=== PATIENT | male | born 1965 | race Two or more races ===

== ENCOUNTER 2024-05-28 09:38 | Emergency (ER) | payer OTHER, SELFPAY ==
[2024-05-28] VITALS (7 sets, daily range): BP systolic 113–138; BP diastolic 68–87; PULSE 64–81; RESP 16–18; TEMP 36.1–36.8; O2SAT 93–95; BMI 33.1
--- NOTE | 2024-05-28 10:46 | ECG_ITS ---
Test Reason : dizziness Blood Pressure : / mmHG Vent. Rate : 069 BPM Atrial Rate : 069 BPM P-R Int : 134 ms QRS Dur : 106 ms QT Int : 416 ms P-R-T Axes : 047 022 052 degrees QTc Int : 445 ms Normal sinus rhythm Nonspecific T wave abnormality Abnormal ECG No previous ECGs available Referred By: Generic ED Physician Electronically Signed By:Esvin Morales
[2024-05-28 11:11] LABS: Hematocrit 47.2 % (42.0-52.0); Hemoglobin 15.8 g/dl (14.0-18.0); Mean Corpuscular HGB Conc 33.5 g/dl (31.0-36.0); Mean Corpuscular Hemoglobin 29.3 pg (27.0-33.0); Mean Corpuscular Volume 87.6 fL (80.0-98.0); Platelet Count 211 X10*3/uL (160-400); Red Blood Count 5.39 X10*6/uL (4.60-5.80); Red Cell Distribution Width 13.1 % (11.0-16.0)
[2024-05-28 11:12] LABS: WBC ABN SCTR FOR CBC 1
[2024-05-28 11:24] LABS: Anion Gap 14 (12-20); Blood Urea Nitrogen 10 mg/dL (9-16); Calcium 9.3 mg/dL (8.4-10.2); Carbon Dioxide 24 mmol/L (22-29); Chloride 109 mmol/L (96-108); Creatinine Clr Calc Pharmacy 104.2; Estimated Glomerular Filt Rate > 60; Glucose Random 125 mg/dL (60-115); Potassium 4.2 mmol/L (3.3-5.1); Sodium 143 mmol/L (135-145)
[2024-05-28 11:59] LABS: Basophils Percent Manual 1 % (0-2); Lymphocytes Percent Manual 27 % (20-40); Monocytes Percent Manual 2 % (2-11); Neutrophils Percent Manual 70 % (45-73)
[2024-05-28 12:00] LABS: Platelet Estimate NORMAL (NORMAL); Platelet Morphology Comment NORMAL; RBC Morphology NORMAL
[2024-05-28 12:17] LABS: Basophils Abs Manual 0.1 X10*3/uL (0.0-0.2); Lymphocytes Absolute Manual 1.7 X10*3/uL (1.2-4.9); Monocytes Absolute Manual 0.1 X10*3/uL (0.1-1.2); White Blood Count 6.4 X10*3/uL (4.8-10.8)
[2024-05-28 12:19] LABS: Band Neutrophils Percent 0 % (3-5); Neutrophils Absolute Manual 4.5 X10*3/uL (2.0-8.3)
--- NOTE | 2024-05-28 12:33 | ED_ITS ---
HPI - Dizziness General Chief Complaint: Dizziness Stated Complaint: Dizzy Can't Hear out of R Ear Time Seen by Provider: 05/28/24 13:19 Source: patient, RN notes reviewed and old records reviewed Mode of arrival: ambulatory Limitations: no limitations History of Present Illness ED Provider: TREESA FELIZ PA-C HPI Narrative: 59-year-old male with no significant past medical history presents to the ED today for evaluation of dizziness x2 days. Reports dizziness is exacerbated with positional changes. Admits symptoms began after drinking multiple coronas on Tuesday and initially thought this was just a hangover. Denies head injury or trauma. Additionally he endorses decreased hearing out of his right ear with associated buzzing sound. Admits to associated nausea without vomiting. Denies history of similar. Denies fever, chills, sore throat, headache, vision changes, discharge from the ear, chest pain, palpitations, shortness of breath, lower extremity pain/swelling. Denies recent swimming. Denies recent travel or long car rides. Related Data Previous Rx's ?Medication ?Instructions ?Recorded meclizine 25 mg tablet 25 mg PO DAILY PRN dizziness #20 05/28/24 tabs Allergies Allergy/AdvReac Type Severity Reaction Status Date / Time No Known Allergies Allergy Verified 05/28/24 10:38 Review of Systems 2 Review of Systems: Constitutional: No fever, chills, fatigue, night sweats, weight changes ENT/Mouth: No ear pain, hearing loss, nasal congestion, sinus pain, rhinorrhea, sore throat Eyes: No eye pain, swelling, redness, vision changes, discharge Cardio: No chest pain, palpitations, LARSON, orthopnea, peripheral edema Pulm: No SOB, cough, sputum, wheezing, dyspnea, hemoptysis GI: No nausea, vomiting, hematemesis, abdominal pain, diarrhea, constipation, hematochezia, melena : No irregular bleeding, dysuria, frequency, urgency, hesitancy, hematuria, flank pain, urinary flow changes, urinary incontinence or retention MSK: No back pain, neck pain, joint pain, myalgias Skin: No lesions, rashes Neuro: No weakness, numbness, paresthesias, LOC, headache, +dizziness Psych: No anxiety/panic, depression, SI/HI, AH/VH All other systems reviewed and are negative. PMFSH Past Medical History Attestation statement: The following information was validated with the patient. Source: old records reviewed and nursing notes reviewed Social History Social History Smoked in Last 30 Days: No Use of substances other than those prescribed or required for medical reasons: No Advance Directives: No Advance Directives Information Provided: Yes Physical Exam 2 Vital Signs: Vital Signs: Last Vital Signs Temp 97 F 05/28/24 12:34 Pulse 81 05/28/24 14:07 Resp 16 05/28/24 14:02 BP 126/83 05/28/24 14:07 Pulse Ox 94 05/28/24 14:02 O2 Del Method Room Air 05/28/24 14:02 BMI result Body Mass Index 33.1 Vital signs stable Const: General: cooperative, healthy appearing, comfortable and no acute distress Orientation/consciousness: patient oriented x3 Limitations: no limitations HEENT: Other: + No pain on manipulation of left pinna or tragus. No mastoid tenderness. Left EAC without erythema, edema or discharge. TM intact without erythema, effusion, or bulging. + No pain on manipulation of right pinna or tragus. No mastoid tenderness. Right EAC without erythema, edema or discharge. TM intact without erythema, effusion, or bulging. Head: Yes normal to inspection, Yes No palpable skull fracture present, Yes normocephalic and Yes atraumatic Ears: hearing grossly normal bilaterally General nose exam: Normal external nose present Face and sinus: Yes normal facial exam Eyes: General: appearance normal, both eyes and all related structures P upils: Equal, round and reactive pupils present Neck: Neck: Yes normal visual inspection, Yes full ROM, Yes no lymphadenopathy and Yes no JVD Resp: Effort & Inspection: normal respiratory effort and able to speak in complete sentences Auscultation: clear to auscultation bilaterally Cardio: Jugular venous distension: no JVD Rate: regular rate Rhythm: r egular rhythm Skin: General skin exam: no rashes or lesions noted Neuro: General: patient oriented x3 and gait normal Cranial nerves: Yes Equal, round and reactive pupils present Gait exam (Neuro): Normal gait present Motor exam (neuro): 5/5 motor strength present throughout and Pronator motor function not present Coordination: [id number]-[id number] test normal, mmmj-hy-wose test normal and Normal rapid alternating movements of the distal upper extremity present (Neuro) Pupils: Normal pupillary reactivity/response: bilateral Course Course Course Narrative: This is an RME: Additional HPI, ROS, PE not included below will be deferred to primary provider. RME assessment and note performed by: Tiana Gallardo PA-C This is a [id number]-male who presents to the ER with complaints of dizziness x 2 days. Reports dizziness occurs with positional changes. Reports that he has been unable to hear out of his right ear. R ear unremarkable. Reporting some high pitched buzzing in his right ear as well. Endorsing nausea as well. Plan: labs, ekg, further ER evaluation needed Reevaluation(s) Reevaluation #1: 1400-- CBC without leukocytosis or left shift. No anemia. H&H stable. Chemistry without acute electrolyte abnormality requiring intervention. Troponin undetectable. EKG showing normal sinus rhythm with a rate of 69 beats per minute, QT 416, QTC 445, no acute ischemic changes or ST elevations. ACS unlikely. Urine negative for infection. > orthostatic vital signs negative. > patient receiving IV fluids and meclizine. Plan to re-evaluate. 1510-- On re-evaluation, patient reports improvement in symptoms following with fluid resuscitation and meclizine. Given unremarkable workup, patient likely has vertigo. I do not feel as though imaging of head/brain is warranted at this time as patient's symptoms have improved and his exam is nonfocal. Will send him home with a prescription for meclizine. Advised to follow up with primary care provider. he is ambulating with steady gait. Patient has remained stable throughout ED visit today. Discussed worrisome signs and symptoms and when to return to the ED. All questions answered at this time. Patient is agreeable with disposition and stable for discharge. Medications Administered Discontinued Medications Generic Name Dose Route Start Last Admin Trade Name Freq PRN Reason Stop Dose Admin Sodium Chloride 1,000 mls @ 999 mls/hr 05/28/24 14:00 05/28/24 14:16 Ns IV 05/28/24 15:00 999 mls/hr .Q1H1M ROSE Administration Meclizine HCl 25 mg 05/28/24 13:55 05/28/24 14:16 Meclizine Hcl 25 Mg Tablet PO 05/28/24 13:56 25 mg ONCE ONE Administration Ondansetron HCl 4 mg 05/28/24 13:56 05/28/24 14:16 Ondansetron Hcl 4 Mg/2 Ml Vial IVPUSH 05/28/24 13:57 4 mg ONCE ONE Administration Medical Decision Making Medical Decision Making [facility] Narrative: 59-year-old male with no significant past medical history presents to the ED today for evaluation of dizziness x2 days. Vital signs stable. Afebrile. He is nontoxic-appearing and in no distress. He is lying comfortably on the exam bed. PERRLA. bilateral EACs and TMs wnl. exam nonfocal. cerebellum intact. ambulating with steady gait. Differential diagnosis include anemia, dehydration, electrolyte abnormality, orthostatic hypotension, vertigo. Unlikely ACS, arrhythmia, ICH, CVA/TIA, cerebellar stroke, PE. Unlikely otitis media/ externa, mastoiditis, malignant otitis externa. Plan for labs, ekg, UA, orthostatic vital signs, IVF, meclizine, and re- evaluation. Differential Diagnosis Differential Diagnoses: The differential diagnosis associated with the presentation includes As above Admission/Observation Not indicated Lab Data [facility] Lab Attestation statement: I reviewed the patient's lab results. As above 05/28/24 11:02 05/28/24 11:02 Labs: Lab Results 05/28/24 05/28/24 Range/Units 11:02 12:43 WBC 6.4 (4.8-10.8) X10*3/uL RBC 5.39 (4.60-5.80) X10*6/uL Hgb 15.8 (14.0-18.0) g/dl Hct 47.2 (42.0-52.0) % MCV 87.6 (80.0-98.0) fL MCH 29.3 (27.0-33.0) pg MCHC 33.5 (31.0-36.0) g/dl RDW 13.1 (11.0-16.0) % Plt Count 211 (160-400) X10*3/uL MPV 11.0 (9.4-12.4) fL Immature Gran % (Auto) Cancelled Neut % (Auto) Cancelled Lymph % (Auto) Cancelled [place] % (Auto) Cancelled Eos % (Auto) Cancelled Baso % (Auto) Cancelled Lymph # (Auto) Cancelled [place] # (Auto) Cancelled Eos # (Auto) Cancelled Baso # (Auto) Cancelled Abs Immat Gran (auto) Cancelled Absolute Neuts (auto) Cancelled Absolute Nucleated RBC 0.000 (0.0-0.012) X10*3/uL Nucleated RBC % (auto) 0.0 (0.0-0.2) /100WBC Neutrophils % (Manual) 70 (45-73) % Band Neutrophils % 0 L (3-5) % Lymphocytes % (Manual) 27 (20-40) % Monocytes % (Manual) 2 (2-11) % Basophils % (Manual) 1 (0-2) % Abs Neuts (Manual) 4.5 (2.0-8.3) X10*3/uL Lymphocytes # (Manual) 1.7 (1.2-4.9) X10*3/uL Monocytes # (Manual) 0.1 (0.1-1.2) X10*3/uL Basophils # (Manual) 0.1 (0.0-0.2) X10*3/uL Platelet Estimate NORMAL (NORMAL) Plt Morphology Comment NORMAL RBC Morphology NORMAL Sodium 143 (135-145) mmol/L Potassium 4.2 (3.3-5.1) mmol/L Chloride 109 H (96-108) mmol/L Carbon Dioxide 24 (22-29) mmol/L Anion Gap 14 (12-20) BUN 10 (9-16) mg/dL Creatinine 0.87 (0.5-1.4) mg/dL Estim Creat Clear Calc 104.2 Estimated GFR > 60 Random Glucose 125 H (60-115) mg/dL Calcium 9.3 (8.4-10.2) mg/dL Troponin I High Sens < 2.7 (<3.5-35.0) ng/L Urine Color Yellow Urine Appearance Clear Urine pH 6.5 (5.0-9.0) Ur Specific [place] 1.020 (1.005-1.025) Urine Protein Negative (Neg-Trace) mg/dL Urine Glucose (UA) Negative (Negative) mg/dL Urine Ketones Negative (Negative) mg/dL Urine Blood Negative (Negative) Urine Nitrite Negative (Negative) Ur Leukocyte Esterase Trace H (Negative) Urine RBC 0-2 (0-2) /HPF Urine WBC 0-5 (0-5) /HPF Ur Squamous Epith Cells 0-2 (0-2) /HPF Urine Bacteria None Seen (None Seen) Hyaline Casts 0-2 (0-2) /LPF Independent Interpretation I performed an independent interpretation of an: EKG Interpretation: EKG showing normal sinus rhythm with a rate of 69 beats per minute, QT 416, QTC 445, no acute ischemic changes or ST elevations. Prescription Management I considered prescription management with: Other (Meclizine) Social Determinants Patient?s care significantly limited by Social Determinants of Health including: Other Social Determinant of Health Critical Care Time Critical Care Time Critical Care Time: No Discharge Plan Discharge Clinical Impression: Dizziness Patient Disposition: Home, Self-Care Instructions: Vertigo (ED), Dizziness (ED) Additional Instructions: Your blood work today is reassuring. Your blood pressure is normal. Your EKG is normal. Your urine is negative for infection. You were treated with IV fluids and a dose of meclizine today. Meclizine is a medication that has been sent to your pharmacy for you to take as needed for dizziness. Make sure you are staying hydrated throughout the day. Please follow up with your primary care provider. Return with new or worsening symptoms. In the case of an emergency call 911. Prescriptions: New meclizine 25 mg tablet 25 mg PO DAILY PRN (Reason: dizziness) Qty: 20 0RF Referrals: [facility] [place] Primary CareSudarshan [Provider Group] [facility] [place] Primary CareMagda [Provider Group] Stand Alone Forms: Work/School Release Print Language: Guyanese
[2024-05-28 12:57] LABS: Appearance Urine Clear; Color Urine Yellow; Glucose Urine UA Negative (Negative); Leukocyte Esterase Urine Trace (Negative); Nitrite Urine Negative (Negative); PH 6.5 (5.0-9.0); UMIC TRIGGER UACC YES; Urine Blood Negative (Negative); Urine Ketones Negative (Negative); Urine Protein Negative (Neg-Trace)
[2024-05-28 13:00] LABS: Bacteria Urine None Seen (None Seen); Hyaline Casts Urine 0-2 /LPF (0-2); RBC Urine 0-2 /HPF (0-2); Squamous Epithelial Cell Urine 0-2 /HPF (0-2); WBC Urine 0-5 /HPF (0-5)
--- NOTE | 2024-05-28 13:27 | PC.NURSE ---
Called lab, spoke to Jacquelyn to confirm if troponin lab test can be added on. Jacquelyn confirmed they have enough sample to run test.
[2024-05-28 13:53] LABS: Troponin-I High Sensitivity < 2.7 ng/L (<3.5-35.0)
[2024-05-28] MEDS: Meclizine HCl 25 MG TABLET PO (14:16)
[2024-05-28] MEDS: ondansetron HCL 4 MG/2 ML VIAL IVPUSH (14:16)
[2024-05-28] MEDS: 0.9 % Sodium Chloride 1,000 ML 999 ML IV (14:16)
== END 2024-05-28 15:57 | disposition home or self-care (01) ==
PROVIDERS: Physician Assistant Medical; Emergency Provider Emergency Medicine
DX: R42 Dizziness and giddiness (principal); R94.31 Abnormal electrocardiogram [ECG] [EKG]; H91.91 Unspecified hearing loss, right ear; R11.2 Nausea with vomiting, unspecified; Z79.899 Other long term (current) drug therapy
CPT/HCPCS: 36415; 80048; 81001; 84484; 85007; 85027; 93005; 96361; 96374; 99284; 99285; J2405

== ENCOUNTER → 2024-05-28 10:46 | Outpatient (BNV) | payer OTHER, SELFPAY | PROVIDERS: Emergency Provider Emergency Medicine; Visit Provider Internal Medicine Cardiovascular Disease | DX: R42 Dizziness and giddiness (principal); R94.31 Abnormal electrocardiogram [ECG] [EKG] | CPT/HCPCS: 93010 ==

== ENCOUNTER 2024-05-31 07:43 | Inpatient (IN) | payer OTHER, SELFPAY ==
--- NOTE | ~2024-05-31 | XR_ITS ---
EXAMINATION: XR CHEST CLINICAL INFORMATION: Dizziness. COMPARISON: None available. TECHNIQUE: Frontal view of the chest was obtained. FINDINGS: The lungs are well expanded. No focal consolidation. Trace left pleural effusion. Cardiac silhouette is within normal limits. XR/XR chest 1V IMPRESSION: Trace left pleural effusion.
--- NOTE | ~2024-05-31 | US_ITS ---
EXAMINATION: US EXTRACRANIAL CAROTID DUPLEX, BILATERAL CLINICAL INFORMATION: Acute stroke COMPARISON: None available. TECHNIQUE: Real-time ultrasound and Doppler techniques (integrating B-mode 2-D vascular images, Doppler spectral analysis and color-flow Doppler imaging) were utilized to interrogate the extracranial carotid arteries, the vertebral arteries and proximal subclavian arteries bilaterally. The degree of stenosis is determined by criteria similar to NASCET. FINDINGS: Right Side: 1. There is mild atherosclerotic plaque seen in the bifurcation/proximal ICA region. 2. The common carotid artery PSV proximally is 162 cm/s and distally 86 cm/s. 3. The proximal internal carotid artery velocities are 54 cm/s systolic and 21 cm/s diastolic. 4. The proximal external carotid artery PSV is 90 cm/s. 5. The vertebral artery shows antegrade flow. 6. The subclavian artery waveforms are normal. Left Side: 1. There is mild atherosclerotic plaque seen in the bifurcation/proximal ICA region. 2. The common carotid artery PSV proximally is 109 cm/s and distally 109 cm/s. 3. The proximal internal carotid artery velocities are 44 cm/s systolic and 12 cm/s diastolic. 4. The proximal external carotid artery PSV is 96 cm/s. 5. The vertebral artery shows antegrade flow. 6. The subclavian artery waveforms are normal. Incidental note of mild thyromegaly. US/US carotid duplex BI IMPRESSION: 1. RIGHT: Minimal, non-hemodynamically significant stenosis of the proximal right internal carotid artery corresponding to a 0-49% stenosis by velocity criteria. 2. LEFT: Minimal, non-hemodynamically significant stenosis of the proximal left internal carotid artery corresponding to a 0-49% stenosis by velocity criteria. 3. Incidental note of mild thyromegaly. Consider dedicated thyroid ultrasound for further evaluation if warranted.
--- NOTE | ~2024-05-31 | MR_ITS ---
EXAMINATION: MR BRAIN WITHOUT CONTRAST CLINICAL INFORMATION: Severe ataxia. Rule out cerebellar stroke. COMPARISON: Head CT from 05/31/2024. TECHNIQUE: Multiplanar, multisequence imaging of the brain was performed without contrast. Slightly limited study with motion artifacts. FINDINGS: There is an acute infarct in the right ventrolateral aspect of the harjit without associated hemorrhage. The ventricles are normal in size. No mass effect or midline shift is seen. Nonspecific mild scattered white matter signal changes may be due to chronic microangiopathy. No extra-axial fluid collections are seen. The cerebellum is normal. The craniovertebral junction, marrow signal, and midline structures are normal. The major intracranial flow voids at the level of the [place] are preserved. The dural venous sinus flow voids are maintained. The mastoid air cells are well aerated. There are small retention cysts in the left maxillary sinus and mild ethmoid sinus mucosal thickening. MR/MR head/brain wo con IMPRESSION: Acute infarct in the right ventrolateral aspect of the harjit.
--- NOTE | ~2024-05-31 | CT_ITS ---
EXAMINATION: CT HEAD WITHOUT CONTRAST CLINICAL INFORMATION: Dizziness. COMPARISON: None available. TECHNIQUE: Contiguous axial imaging was performed from the skull base to vertex without intravenous administration of contrast. This CT examination was performed using dose optimization techniques as appropriate, variously including the following: *Automated exposure control *Adjustment of mA and/or kV according to patient size (this includes techniques or standardized protocols for targeted exams where dose is matched to indication/reason for exam; i.e. extremities or head) *Use of iterative reconstruction technique DLP: 667 mGy-cm FINDINGS: There is no evidence of acute intracranial hemorrhage or territorial infarction. No mass effect or midline shift is seen. Biggs to white matter differentiation is preserved. No extra-axial fluid collections are identified. No hydrocephalus. The osseous structures and soft tissues are intact. The mastoid air cells and visualized portions of the paranasal sinuses are well aerated. CT/CT head/brain wo IV con IMPRESSION: No acute intracranial abnormality.
[2024-05-31 07:53] VITALS: BP 120/84; PULSE 83; RESP 16; TEMP 36.6; O2SAT 92; BMI 31.8
--- NOTE | 2024-05-31 08:05 | ECG_ITS ---
Test Reason : dizziness Blood Pressure : / mmHG Vent. Rate : 082 BPM Atrial Rate : 082 BPM P-R Int : 136 ms QRS Dur : 100 ms QT Int : 384 ms P-R-T Axes : 054 -05 030 degrees QTc Int : 448 ms Normal sinus rhythm with sinus arrhythmia Nonspecific T wave abnormality Abnormal ECG When compared with ECG of 28-MAY-2024 10:52, No significant change was found Referred By: Bakari Morgan Electronically Signed By:Esvin Morales
--- NOTE | 2024-05-31 08:07 | ED_ITS ---
HPI - Dizziness General Chief Complaint: Dizziness Stated Complaint: Dizziness Time Seen by Provider: 05/31/24 07:55 Source: patient and family (Spouse) Mode of arrival: ambulatory Limitations: no limitations History of Present Illness ED Provider: DR. Morgan HPI Narrative: 59-year-old male came in for evaluation of dizziness that is started 5 days ago, patient's symptoms started with just dizziness and unable to hear out of right ear patient came to our hospital for evaluation 3 days ago and was diagnosed with vertigo and sent home with meclizine despite using the medication PHN noticed that his unbalanced gait and being dizzy and room spinning around him is getting worse, patient also stated that he used to speak street but now he has slurred speech and can not think straight. Patient has been taking meclizine without improvement. No headache, no nausea, no vomiting, no weakness otherwise. Related Data Previous Rx's ?Medication ?Instructions ?Recorded meclizine 25 mg tablet 25 mg PO DAILY PRN dizziness #20 05/28/24 tabs Allergies Allergy/AdvReac Type Severity Reaction Status Date / Time No Known Allergies Allergy Verified 05/31/24 07:56 Review of Systems 2 Review of Systems: All other systems are reviewed and are negative Constitutional: Reports as per HPI and Reports no additional constitutional complaints Eyes: Reports as per HPI and Reports no additional eye complaints Reports system reviewed and no additional complaints, except as documented Cardiovascular: Reports as per HPI and Reports no additional cardiovascular complaints Respiratory: Reports as per HPI and Reports no additional respiratory complaints Gastrointestinal: Reports as per HPI and Reports no additional gastrointestinal complaints Genitourinary: Reports no additional female genitourinary complaints Musculoskeletal: Reports no additional musculoskeletal complaints Skin/Breast: Reports system reviewed and no additional complaints, except as docu Psychiatric: Reports no additional psychiatric complaints Endocrine: Reports no additional endocrine complaints Hematologic/Lymphatic: Reports no additional hematologic/lymphatic complaints Allergic/Immunologic: Reports no additional allergic/immunologic complaints Reports system reviewed and no additional complaints, except as documented and Reports Abnormal speech present Physical Exam 2 Vital Signs: Vital Signs: Last Vital Signs Temp 97.9 F 05/31/24 07:53 Pulse 83 05/31/24 07:53 Resp 16 05/31/24 07:53 BP 120/84 05/31/24 07:53 Pulse Ox 92 05/31/24 07:53 O2 Del Method Room Air 05/31/24 07:53 BMI result Body Mass Index 31.8 Vital signs have been reviewed and appear to be correct. Blood pressure elevated. Heart rate normal. Respiratory rate normal. Temperature normal. Oxygen saturation normal. Appearance: Alert. Oriented X3. No acute distress. Head: Normal external exam. Normocephalic. Atraumatic. No Luis signs noted. No raccoon eyes noted Eyes: PERRLA. EOMI. Conjunctiva and sclera normal. Eyelids normal. ENT: TM's Normal. In particular right ear's exam is unremarkable, Pharynx normal. Uvula midline. Moist mucous membranes. No trismus noted. No drooling noted. No muffled voice noted. Neck: Normal inspection. Neck supple. FROM. No adenopathy. Thyroid Normal. No meningeal signs. No neck mass noted. CVS: Normal heart rate and rhythm. Heart sound normal. No murmurs noted. Pulses normal throughout. Respiratory: No respiratory distress. Painless inspiration. Breath sounds normal. No wheezes/rales/rhonchi noted. Chest nontender. No accessory muscle usage noted or decreased air movement noted. Abdomen: Soft and nontender. Bowel sounds normal in all 4 quadrants. No distention noted. No organomegaly noted. No visible injury noted. Back: No CVA tenderness. Full range of motion noted. Skin: Skin warm and dry. Normal skin color. Normal skin turgor. No rashes/lesions/lacerations noted. Extremities: No lower extremity edema. Extremities exhibit normal range of motion. Extremities nontender. Neuro: Oriented X 3. Cranial nerve exam: II-XII are grossly intact No motor deficit. No sensory deficit. Reflexes normal. Cerebellar exam: No [id number] dysmetria, patient unable to walk in straight line. Course Reevaluation(s) Reevaluation #1: 7 days of severe dizziness and slurred speech with no hearing of the right ear, head CT is unremarkable, MRI showed right ventral lateral aspect of the harjit stroke. Patient is not candidate for TNK, will administer aspirin and admit to the hospital. Time: 13:53 Medications Administered Discontinued Medications Generic Name Dose Route Start Last Admin Trade Name Freq PRN Reason Stop Dose Admin Sodium Chloride 1,000 mls @ 999 mls/hr 05/31/24 08:04 05/31/24 10:04 Ns IV 05/31/24 09:04 Infused .Q1H1M ONE Infusion Lorazepam 1 mg 05/31/24 08:17 05/31/24 08:30 Lorazepam 1 Mg Tablet PO 05/31/24 08:18 1 mg ONCE ONE Administration Medical Decision Making Differential Diagnosis Differential Diagnoses: The differential diagnosis associated with the presentation includes (Peripheral vertigo, central vertigo, intracranial bleed, electrolyte derangement, severe anemia, dehydration.) Admission/Observation Consideration of admission/observation: Escalation of care including admission/observation considered Consult Healthcare Provider Management of the patient was discussed with: Hospitalist (Dr. Wen) Lab Data MDM Lab Attestation statement: I reviewed the patient's lab results. 05/31/24 08:26 05/31/24 08:26 Labs: Lab Results 05/31/24 05/31/24 05/31/24 Range/Units 08:26 08:27 09:45 WBC 6.8 (4.8-10.8) X10*3/uL RBC 5.75 (4.60-5.80) X10*6/uL Hgb 16.5 (14.0-18.0) g/dl Hct 49.8 (42.0-52.0) % MCV 86.6 (80.0-98.0) fL MCH 28.7 (27.0-33.0) pg MCHC 33.1 (31.0-36.0) g/dl RDW 13.0 (11.0-16.0) % Plt Count 226 (160-400) X10*3/uL MPV 10.9 (9.4-12.4) fL Immature Gran % (Auto) 0.1 (0.0-0.4) % Neut % (Auto) 51.1 (45-73) % Lymph % (Auto) 41.9 H (20-40) % [place] % (Auto) 5.9 (2-11) % Eos % (Auto) 0.4 (0-4) % Baso % (Auto) 0.6 (0-2) % Lymph # (Auto) 2.8 (1.2-4.9) X10*3/uL [place] # (Auto) 0.4 (0.1-1.2) X10*3/uL Eos # (Auto) 0.0 (0.0-0.4) X10*3/uL Baso # (Auto) 0.0 (0.0-0.2) X10*3/uL Abs Immat Gran (auto) 0.01 (0.00-0.03) X10*3/uL Absolute Neuts (auto) 3.5 (2.0-8.3) x10*3/uL Absolute Nucleated RBC 0.000 (0.0-0.012) X10*3/uL Nucleated RBC % (auto) 0.0 (0.0-0.2) /100WBC Sodium 140 (135-145) mmol/L Potassium 4.2 (3.3-5.1) mmol/L Chloride 105 (96-108) mmol/L Carbon Dioxide 27 (22-29) mmol/L Anion Gap 12 (12-20) BUN 12 (9-16) mg/dL Creatinine 0.89 (0.5-1.4) mg/dL Estim Creat Clear Calc 99.9 Estimated GFR > 60 Random Glucose 106 (60-115) mg/dL Calcium 9.7 (8.4-10.2) mg/dL Total Bilirubin 0.6 (0.0-1.0) mg/dL Direct Bilirubin 0.2 (0.0-0.5) mg/dL AST 18 (5-37) U/L ALT 33 (0-40) U/L Alkaline Phosphatase 72 (39-117) U/L Troponin I High Sens < 2.7 (<3.5-35.0) ng/L B-Natriuretic Peptide < 10 (<100) pg/mL Total Protein 7.5 (6.5-8.0) g/dL Albumin 4.2 (3.5-5.0) g/dL Lipase 17 (8-78) U/L Urine Color Yellow Urine Appearance Clear Urine pH 5.5 (5.0-9.0) Ur Specific [place] 1.025 (1.005-1.025) Urine Protein Negative (Neg-Trace) mg/dL Urine Glucose (UA) Negative (Negative) mg/dL Urine Ketones Negative (Negative) mg/dL Urine Blood Negative (Negative) Urine Nitrite Negative (Negative) Ur Leukocyte Esterase Negative (Negative) Influenza Type A (PCR) NEGATIVE (Negative) Influenza Type B (PCR) NEGATIVE (Negative) RSV RNA Qual (PCR) NEGATIVE (Negative) SARS-CoV-2 RNA (RT-PCR) NEGATIVE (Negative) Independent Interpretation I performed an independent interpretation of an: Plain X-Ray (Chest x-ray trace left pleural effusion.) and CT Scan (Head: No acute intracranial pathology.) Interpretation: MRI of the brain: Acute infarction in the right ventral lateral aspect of the harjit. Radiology Impression Discussion of test interpretation with radiology: I have reviewed the radiologist's reading. Discharge Plan Discharge Clinical Impression: Dizziness, Acute CVA (cerebrovascular accident) Patient Disposition: Admitted As Inpatient Prescriptions: No Action meclizine 25 mg tablet 25 mg PO DAILY PRN (Reason: dizziness) Qty: 20 0RF Print Language: Peruvian
[2024-05-31] MEDS: 0.9 % Sodium Chloride 1,000 ML 999 ML IV (08:27)
[2024-05-31] MEDS: LORazepam 1 MG TABLET PO (08:30)
[2024-05-31 08:31] LABS: MANUAL DIFF FLAG NO
[2024-05-31 08:35] LABS: Basophils Percent Auto 0.6 % (0-2); Eosinophils Percent Auto 0.4 % (0-4); Hematocrit 49.8 % (42.0-52.0); Hemoglobin 16.5 g/dl (14.0-18.0); Imm Gran Abs Auto 0.01 X10*3/uL (0.00-0.03); Imm Gran Pct Auto 0.1 % (0.0-0.4); Lymphocytes Absolute Auto 2.8 X10*3/uL (1.2-4.9); Lymphocytes Percent Auto 41.9 % (20-40); Mean Corpuscular HGB Conc 33.1 g/dl (31.0-36.0); Mean Corpuscular Hemoglobin 28.7 pg (27.0-33.0); Mean Corpuscular Volume 86.6 fL (80.0-98.0); Mean Platelet Volume 10.9 fL (9.4-12.4); Monocytes Absolute Auto 0.4 X10*3/uL (0.1-1.2); Monocytes Percent Auto 5.9 % (2-11); Neutrophils Absolute Auto 3.5 x10*3/uL (2.0-8.3); Neutrophils Percent Auto 51.1 % (45-73); Platelet Count 226 X10*3/uL (160-400); Red Blood Count 5.75 X10*6/uL (4.60-5.80); White Blood Count 6.8 X10*3/uL (4.8-10.8)
[2024-05-31 08:49] LABS: Alanine Aminotransferase 33 U/L (0-40); Albumin Level 4.2 g/dL (3.5-5.0); Alkaline Phosphatase 72 U/L (39-117); Anion Gap 12 (12-20); Aspartate Amino Transferase 18 U/L (5-37); Bilirubin Direct 0.2 mg/dL (0.0-0.5); Bilirubin Total 0.6 mg/dL (0.0-1.0); Blood Urea Nitrogen 12 mg/dL (9-16); Calcium 9.7 mg/dL (8.4-10.2); Carbon Dioxide 27 mmol/L (22-29); Chloride 105 mmol/L (96-108); Creatinine Clr Calc Pharmacy 99.9; Estimated Glomerular Filt Rate > 60; Glucose Random 106 mg/dL (60-115); Lipase 17 U/L (8-78); Potassium 4.2 mmol/L (3.3-5.1); Sodium 140 mmol/L (135-145); Total Protein 7.5 g/dL (6.5-8.0)
[2024-05-31 08:53] LABS: B Type Natriuretic Peptide < 10 pg/mL (<100)
[2024-05-31 08:59] LABS: Troponin-I High Sensitivity < 2.7 ng/L (<3.5-35.0)
[2024-05-31 09:18] LABS: Influenza A PCR NEGATIVE (Negative); Influenza B PCR NEGATIVE (Negative); Resp Syncy Virus RNA Qual PCR NEGATIVE (Negative); SARS COV2 PCR INHOUSE NEGATIVE (Negative)
[2024-05-31 09:53] LABS: Appearance Urine Clear; Color Urine Yellow; Glucose Urine UA Negative (Negative); Leukocyte Esterase Urine Negative (Negative); Nitrite Urine Negative (Negative); PH 5.5 (5.0-9.0); Specific Gravity - Urine 1.025 (1.005-1.025); Urine Blood Negative (Negative); Urine Ketones Negative (Negative); Urine Protein Negative (Neg-Trace)
[2024-05-31] MEDS: Aspirin Enteric Coated 81 MG TABLET.DR PO (13:49)
[2024-05-31 13:51] VITALS: BP 127/86; PULSE 77; RESP 16; TEMP 36.8; O2SAT 94
--- NOTE | 2024-05-31 14:07 | P.HPHOSP_ITS ---
History of Present Illness Date of Service: 05/31/24 Attending physician on admission: Ihsan Hills Chief Complaint: Dizziness, slurred speech Pt is a 59-year-old male with no known significant PMH who has not seen a PCP in 30+ years who presents to the ED with dizziness, ataxia, loss of hearing in right ear, bilateral blurriness, and difficulty word finding x5 days. Patient states symptoms began last Tuesday when he was taking a shower and he felt a ?delacruz? coming up at him which brought him to his knees. Since then patient has experienced dizziness that feels like the room is spinning, partially alleviated with lying down and worsened with standing. Has been having difficulty walking. Also reports bilateral blurriness, unable to hear out of his right ear, and has been experiencing difficulty finding words. Denies any slurring. Denies any numbness or tingling or weakness in extremities. No headache. Denies chest/pressure, or palpitations. No shortness a breath or difficulty breathing. Patient previously presented to the ED on Monday 05/28 for similar symptoms. Was diagnosed with vertigo and sent home on meclizine. Since then patient reports symptoms have persisted and not alleviated with meclizine, and so he decided to re-presented to the ED for further evaluation today. Patient denies any significant change or worsening of symptoms since Tuesday. In the ED pt was Labs were grossly unremarkable and baseline for patient. No leukocytosis. Stable H&H. No significant electrolyte abnormalities. Renal and hepatic function WNL. Troponin negative. BNP negative. UA negative for UTI. Tested negative for flu, RSV, and COVID. CXR showed trace left pleural effusion. CT?of head showed no acute intracranial abnormality. MRI brain found acute infarct in the right ventral lateral aspect of the harjit. EKG demonstrated normal sinus rhythm with sinus arrhythmia and no significant ST elevations or depressions, similar to previous. Pt was treated with IVF, Ativan and aspirin. Pt will be admitted to the hospital for treatment and further evaluation of acute CVA. Review of Systems 2 Review of Systems: Dizziness/vertigo Ataxia Difficulty word finding Right-sided hearing loss Bilateral blurriness Denies numbness, tingling, or weakness in extremities No chest pain/pressure, palpitations Denies shortness of breath or difficulty breathing PMFSH Social History Smoked in Last 30 Days: No Use of substances other than those prescribed or required for medical reasons: No Advance Directives: No Advance Directives Information Provided: Yes Meds Allergies Allergy/AdvReac Type Severity Reaction Status Date / Time No Known Allergies Allergy Verified 05/31/24 07:56 Physical Exam 2 Vital Signs and Narrative: Vital Signs: Last Vital Signs Temp 98.2 F 05/31/24 13:51 Pulse 77 05/31/24 13:51 Resp 16 05/31/24 13:51 BP 127/86 05/31/24 13:51 Pulse Ox 94 05/31/24 13:51 O2 Del Method Room Air 05/31/24 13:51 BMI result Body Mass Index 31.8 Constitutional: Alert, in no acute distress. Mental Status: Oriented to person, place and time. Eyes: Pupils are equal, round, and reactive to light. Ear, Nose, and Throat: Oropharynx clear, mucous membranes moist. Ears and nose without deformities. Trachea midline. Respiratory: Clear to auscultation bilaterally. No wheezing, rales, or rhonchi. Cardiovascular: S1, S2 regular. No murmurs, rubs, or gallops. Gastrointestinal: Abdomen soft, non-tender, non-distended. Normal bowel sounds. Neurologic: Cranial nerves II-XII are grossly intact bilaterally. No focal neurological deficits. Moves all extremities spontaneously. Sensation to light touch preserved bilaterally in face, upper extremities, and lower extremities. Strength of upper and lower extremities bilaterally preserved and symmetrical. Skin: Warm, dry. Extremities: No edema. Psychiatric: Normal mood and affect. Results Labs 05/31/24 08:26 05/31/24 08:26 Labs: Laboratory Results - last 24 hr 05/31/24 05/31/24 05/31/24 08:26 08:27 09:45 MCV 86.6 MCH 28.7 MCHC 33.1 RDW 13.0 Plt Count 226 MPV 10.9 Immature Gran % (Auto) 0.1 Neut % (Auto) 51.1 Lymph % (Auto) 41.9 H [place] % (Auto) 5.9 Eos % (Auto) 0.4 Baso % (Auto) 0.6 Lymph # (Auto) 2.8 [place] # (Auto) 0.4 Eos # (Auto) 0.0 Baso # (Auto) 0.0 Abs Immat Gran (auto) 0.01 Absolute Neuts (auto) 3.5 Absolute Nucleated RBC 0.000 Nucleated RBC % (auto) 0.0 Anion Gap 12 Estim Creat Clear Calc 99.9 Estimated GFR > 60 Random Glucose 106 Calcium 9.7 Total Bilirubin 0.6 Direct Bilirubin 0.2 AST 18 ALT 33 Alkaline Phosphatase 72 Troponin I High Sens < 2.7 B-Natriuretic Peptide < 10 Total Protein 7.5 Albumin 4.2 Lipase 17 Urine Color Yellow Urine Appearance Clear Urine pH 5.5 Ur Specific [place] 1.025 Urine Protein Negative Urine Glucose (UA) Negative Urine Ketones Negative Urine Blood Negative Urine Nitrite Negative Ur Leukocyte Esterase Negative Influenza Type A (PCR) NEGATIVE Influenza Type B (PCR) NEGATIVE RSV RNA Qual (PCR) NEGATIVE SARS-CoV-2 RNA (RT-PCR) NEGATIVE Imaging Radiologist's Impressions: Impressions Chest X-Ray 05/31/24 09:00 IMPRESSION: Trace left pleural effusion. Head CT 05/31/24 09:40 IMPRESSION: No acute intracranial abnormality. Brain MRI 05/31/24 12:12 IMPRESSION: Acute infarct in the right ventrolateral aspect of the harjit. Assessment and Plan (1) Acute CVA (cerebrovascular accident): Status: Acute Plan Pt is a 59-year-old male with no known significant PMH who has not seen a PCP in 30+ years who presents to the ED with dizziness, ataxia, loss of hearing in right ear, bilateral blurriness, and difficulty word finding x5 days. Pt will be admitted to the hospital for treatment and further evaluation of acute CVA. Acute CVA Patient with dizziness, difficulty word finding, ataxia, blurriness, and right- sided hearing loss x5 days MRI brain found acute infarct in right ventral lateral aspect of the harjit Patient given aspirin in the ED Aspirin 80 mg and atorvastatin 40 mg daily Continue meclizine prn for dizziness Carotid ultrasound Echocardiogram with bubble study Lipid profile PT/OT and speech evaluation Neurology consult Monitor on telemetry Pt otherwise has no known PMH or acute medical complaints Full Code Attending:?Dr. Hills DVT Prophylaxis: Lovenox Pt will require a hospitalization of at least two nights for treatment of?acute CVA with additional evaluation and workup, close monitoring of cardiac function, and specialist consultation with Neurology, speech, and PT/OT. Quality Stroke Does the patient have a stroke diagnosis?: Yes Reason for No Anti-thrombotic by Day Two: Contraindicated (Outside of tNK therapeutic window.) VTE Prior VTE?: No VTE Risk Level:: Medical - moderate - high VTE Device Contraindication: Treatment Not Indicated VTE Drug Contraindication: N/A - Med Ordered
--- NOTE | 2024-05-31 14:22 | PHA.MEDREC ---
Pharmacy Consult ? Medication Reconciliation Pharmacy has completed the medication reconciliation.
[2024-05-31 15:34] LABS: Cholesterol 238 mg/dL (<200); HDL Cholesterol 41 mg/dL (>40); LDL Cholesterol Calculated 173 mg/dL (<100); Triglycerides 123 mg/dL (<150)
[2024-05-31] MEDS: Meclizine HCl 25 MG TABLET PO (15:39)
[2024-05-31] MEDS: Enoxaparin Sodium 40 MG/0.4 ML SYRINGE SUBCUT (15:39)
[2024-05-31] MEDS: 0.9 % Sodium Chloride Flush 3 ML SYRINGE IVFLUSH ×2 (15:41→20:27)
[2024-05-31 15:43] VITALS: BP 127/86; PULSE 77; O2SAT 94
[2024-05-31 16:19] VITALS: BP 129/72; PULSE 92; RESP 18; TEMP 37.1; O2SAT 95
--- NOTE | 2024-05-31 16:24 | MHC.EDTECH ---
This pct assumed care of patient at 1500 ,vitals taken and Patient belonings list done ,Patient had a bed on med telly floor ,on his way up .
[2024-05-31 16:30] VITALS: BP 130/79; PULSE 92; RESP 16; TEMP 36.1; O2SAT 92
[2024-05-31 20:00] VITALS: BP 133/77; PULSE 81; RESP 17; TEMP 37.5; O2SAT 94
[2024-05-31] MEDS: Atorvastatin Calcium 40 MG TABLET PO (20:27)
[2024-06-01] VITALS (8 sets, daily range): BP systolic 112–131; BP diastolic 57–81; PULSE 70–80; RESP 16–20; TEMP 36–37.3; O2SAT 92–95
--- NOTE | 2024-06-01 06:45 | PC.NURSE ---
Patient neuro assessment done at shift change he is alert and oriented to self, place and year. Speech is clear , no facial drop noted. Patient follows all commands. Patient moves all extremities strong and equal . He complains of dizziness and blurry vision along with hearing impairment to the right ear. Patient denies headache pain, numbness and tingaling and other neuro deficits. Lung sounds are clear, abdomen is round non tender. Patient uses the urinal at the bedside and he takes his medications whole with thin liquids. Please see assessments for more details.
[2024-06-01] MEDS: Aspirin Enteric Coated 81 MG TABLET.DR PO (09:06)
[2024-06-01] MEDS: 0.9 % Sodium Chloride Flush 3 ML SYRINGE IVFLUSH (09:08)
--- NOTE | 2024-06-01 09:14 | MHC.CM.PN ---
CM met with Patient and his at bedside and assisted him with the completion of a HCP; he named his /Lanny as his Agent. Patient lives in a house with his and he was functionally independent and working 2 jobs [employer]. Patient does not have a PCP; the PCP pamphlet has been given to him. PT is recommending Acute Rehab and [facility] is his first choice. CM has initiated and will follow for dc planning.
--- NOTE | 2024-06-01 09:38 | P.PNIM_ITS ---
Subjective Subjective Date of Service: 06/01/24 Interval History: dizzyness, left sdied weakness, vision changes Physical Exam 2 Vital Signs: Vital Signs: Last Vital Signs Temp 98.3 F 06/01/24 07:06 Pulse 76 06/01/24 07:06 Resp 20 06/01/24 07:06 BP 121/76 06/01/24 07:06 Pulse Ox 94 06/01/24 07:06 O2 Del Method Room Air 06/01/24 07:06 BMI result Body Mass Index 31.8 mild left hemiparesis, Objective Data Active Medications Acetaminophen (Acetaminophen 325 Mg Tablet) 650 mg PO Q6H PRN PRN Reason: Pain, Mild (Pain Scale 1-3), fever or headache Aspirin (Aspirin Enteric Coated 81 Mg Tablet.Dr) 81 mg PO DAILY [facility] Last Admin: 06/01/24 09:06 Dose: 81 mg Documented By: MYRNA Atorvastatin Calcium (Atorvastatin Calcium 40 Mg Tablet) 40 mg PO BEDTIME [facility] Last Admin: 05/31/24 20:27 Dose: 40 mg Documented By: NIKOS Benzonatate (Benzonatate 100 Mg Capsule) 100 mg PO TID PRN PRN Reason: Cough Calcium Carbonate (Calcium Carbonate 750 Mg Tab.Chew) 750 mg PO Q4H PRN PRN Reason: Heartburn Enoxaparin Sodium (Enoxaparin Sodium 40 Mg/0.4 Ml Syringe) 40 mg SUBCUT Q24H [facility] Last Admin: 05/31/24 15:39 Dose: 40 mg Documented By: DANIAL Magnesium Hydroxide (Milk Of Magnesia 30 Ml Oral.Susp) 30 ml PO DAILY PRN PRN Reason: Constipation Meclizine HCl (Meclizine Hcl 25 Mg Tablet) 25 mg PO DAILY PRN PRN Reason: dizziness Last Admin: 05/31/24 15:39 Dose: 25 mg Documented By: DANIAL Melatonin (Melatonin 3 Mg Tablet) 6 mg PO BEDTIME PRN PRN Reason: Insomnia Ondansetron HCl (Ondansetron Hcl 4 Mg/2 Ml Vial) 4 mg IVPUSH Q8H PRN PRN Reason: Nausea and Vomiting Sodium Chloride (0.9 % Sodium Chloride Flush 3 Ml Syringe) 3 ml IVFLUSH QSHIFT [facility] Last Admin: 06/01/24 09:08 Dose: 3 ml Documented By: MYRNA Labs 05/31/24 08:26 05/31/24 08:26 Labs: Laboratory Results - last 24 hr 05/31/24 05/31/24 08:26 09:45 Triglycerides 123 Cholesterol 238 H LDL Cholesterol, Calc 173 H HDL Cholesterol 41 Urine Color Yellow Urine Appearance Clear Urine pH 5.5 Ur Specific [place] 1.025 Urine Protein Negative Urine Glucose (UA) Negative Urine Ketones Negative Urine Blood Negative Urine Nitrite Negative Ur Leukocyte Esterase Negative Assessment and Plan (1) Acute CVA (cerebrovascular accident): Status: Acute Plan 59M presented with ataxia, dysarthria, left sdied weakness acute right harjit cva continue asa, statin follow up Carotid doppler, echo, neuro pt/ot recommending acute rehab hyperlipidema ldl 170, starting on lipitor dvt prophylaxis - lovenox full code reason for continued hospitalization:stroke work up ongoing Quality Stroke Does the patient have a stroke diagnosis?: Yes Reason for No Anti-thrombotic by Day Two: Contraindicated (Outside of tNK therapeutic window.) VTE Prior VTE?: No VTE Risk Level:: Medical - moderate - high VTE Device Contraindication: Treatment Not Indicated VTE Drug Contraindication: N/A - Med Ordered
--- NOTE | 2024-06-01 10:41 | P.CNNE_ITS ---
History of Present Illness Data of Consult Service Date: 06/01/24 Primary Care Provider: None Physician HPI Reason for consult: Stroke 59 years old man who denied any history of hypertension or diabetes or any significant medical issues except stating that he was drinking heavy amount of alcohol. He said that he might have taken about 10 drinks of [place]. He came to hospital with few days history of unsteadiness difficulty speaking and dizziness. His evaluation revealed a medium size right brainstem to pontine acute ischemic infarct. There was also evidence of moderate amount of chronic microvascular ischemic changes. Now he was feeling better. Review of Systems 2 Review of Systems: No recent cold or flu-like illness or trauma [facility] Social History Social History Household Members: Spouse Housing: House Do you presently have visiting nurse or other home services: No Patient Tobacco Use Status: Never used Tobacco service: No Meds Allergies Allergy/AdvReac Type Severity Reaction Status Date / Time No Known Allergies Allergy Verified 05/31/24 07:56 Active Medications: Current Medications Acetaminophen (Acetaminophen 325 Mg Tablet) 650 mg PO Q6H PRN PRN Reason: Pain, Mild (Pain Scale 1-3), fever or headache Aspirin (Aspirin Enteric Coated 81 Mg Tablet.) 81 mg PO DAILY [facility] Last Admin: 06/01/24 09:06 Dose: 81 mg Atorvastatin Calcium (Atorvastatin Calcium 40 Mg Tablet) 40 mg PO BEDTIME [facility] Last Admin: 05/31/24 20:27 Dose: 40 mg Benzonatate (Benzonatate 100 Mg Capsule) 100 mg PO TID PRN PRN Reason: Cough Calcium Carbonate (Calcium Carbonate 750 Mg Tab.Chew) 750 mg PO Q4H PRN PRN Reason: Heartburn Enoxaparin Sodium (Enoxaparin Sodium 40 Mg/0.4 Ml Syringe) 40 mg SUBCUT Q24H [facility] Last Admin: 05/31/24 15:39 Dose: 40 mg Magnesium Hydroxide (Milk Of Magnesia 30 Ml Oral.Susp) 30 ml PO DAILY PRN PRN Reason: Constipation Meclizine HCl (Meclizine Hcl 25 Mg Tablet) 25 mg PO DAILY PRN PRN Reason: dizziness Last Admin: 05/31/24 15:39 Dose: 25 mg Melatonin (Melatonin 3 Mg Tablet) 6 mg PO BEDTIME PRN PRN Reason: Insomnia Ondansetron HCl (Ondansetron Hcl 4 Mg/2 Ml Vial) 4 mg IVPUSH Q8H PRN PRN Reason: Nausea and Vomiting Sodium Chloride (0.9 % Sodium Chloride Flush 3 Ml Syringe) 3 ml IVFLUSH QSHIFT [facility] Last Admin: 06/01/24 09:08 Dose: 3 ml Physical Exam 2 Vital Signs: Vital Signs: Last Vital Signs Temp 98.3 F 06/01/24 07:06 Pulse 76 06/01/24 07:06 Resp 20 06/01/24 07:06 BP 121/76 06/01/24 07:06 Pulse Ox 94 06/01/24 07:06 O2 Del Method Room Air 06/01/24 07:06 BMI result Body Mass Index 31.8 Neuro: Other: Alert and awake with normal spontaneity of speech fluency comprehension and affect. Speech is slightly dysarthric. There is mild right [id number] ataxia. Face is symmetrical. Visual kapoor are full. There is otherwise no focal weakness. Results Labs 05/31/24 08:26 05/31/24 08:26 Labs: Head CT did not reveal any significant abnormality. Brain MRI revealed acute to subacute right midbrain/pontine ischemic infarct with moderate chronic microvascular ischemic changes. Carotid ultrasound was okay. Assessment and Plan (1) Acute CVA (cerebrovascular accident): Status: Acute 59 years old man with binge alcohol drinking drank heavy amount of liquor and few days ago developed dizziness unsteadiness and difficulty speaking. As he did not recover, a came to hospital and was noted to have an acute ischemic infarct in brainstem. He was not hypertensive. Cholesterol was somewhat high. He was not diabetic either. I recommend PT OT consultation, strongly advised to not drink alcohol at all, baby aspirin daily, statin, echocardiogram, and follow-up with a primary care physician regular basis. Procedures Date of Service Date of Service: 06/01/24
--- NOTE | 2024-06-01 11:16 | MHC.SLORD ---
Speech Language Pathology Order Status: Attempted to see patient for bedside swallow eval this morning. Patient working with PT at the time. FORM TAMPER to return at a later time.
--- NOTE | 2024-06-01 13:57 | MHC.SP.ADU ---
Referring provider: Amber Cox Reason for Referral: CVA Type of Treatment: 62741 Evaluation Speech Sound Production WITH Language Date of Plan of Treatment: 06/01/24 Onset of Symptoms/Illness: 05/31/24 Date Treatment Started: 06/01/24 Medical Diagnosis: Acute CVA Primary Speech Language Diagnosis: R47.01 Aphasia Secondary Speech Language Diagnosis: R47.81 Slurred speech History Patient is a 59 year old male who has not been seen by a PCP in 30+ years, presenting to the ED with dizziness, ataxia, loss of hearing in the right ear, bilateral blurriness, and difficulty finding words for 5 days. Patient was previously seen in the ED on 05/28 with similar symptoms, was diagnosed with vertigo, and was discharged home on meclizine. Patient returned to the ED after his symptoms persisted. His labs were grossly unremarkable and baseline for patient. His CXR showed trace PE and his brain MRI found acute infarct in the R-ventral lateral aspect of the harjit. Patient was admitted for acute CVA. PT, OT, and CUSTOM MOTORCYCLE PAINTER services were consulted, as well as Neurology. Swallowing History: Dysphagia Specific: Within Functional Limits Comments: Per RN, patient has been eating an unmodified diet without any issues. Pre-eval Risk for Aspiration: Neurological Condition Pre-evaluation Dietary Consistencies: Regular Pre-eval Liquid Intake: Thin Pre-eval Medication Intake: Whole with Liquid Reported Speech, Language, Cognition difficulties: Speaking Comments: Patient presents with mild dysarthria and mild expressive aphasia. Assessment Speech Production: Aphasic: Nonfluent Slurred Clinical Impression: Impaired Observations: Patient with word finding difficulty during confrontational naming and within conversation. Also note slurred speech quality. Tests of Speech & Lang Adults: BDAE BNT Clinical Impression: Impaired Observations: Patient is oriented to person, place, time, and situation. He was able to repeat single words and whole sentences without error. He followed commands without difficulty and appropriately responded to open ended questions. Patient formulated complete sentences with appropriate use of syntactic structures and semantics. He was administered the [place] Naming Test Short Form and correctly named 9 out of 15 line images. Patient presented with semantic paraphasias, naming hammock as mat and stethoscope as thermometer. He was able to correct himself when prompted with semantic cues (i.e. ham.... for hammock ) and sentence completion cues (i.e. The doctor uses a paxton.... for stethoscope ). In addition to word finding difficulty, patient complained of his speech sounding slurred. Patient did present with mildly slowed and slurred speech with articulatory errors on multisyllabic words (i.e. produced cactus as actus ; difficulty sequencing syllables in stethoscope ). Patient was aware of misarticulations and often self-corrected with successive approximations. Impressions and Recommendations Summary: Impact on Daily Function/Activity Limitations: Daily Activities: Mild Interpersonal Interactions: Mild Education: Employment: Community: Mild Prognosis for Improvement: Good Recommendation for Speech Therapy: Inpatient Speech Therapy Speech Therapy through Rehab Facility Frequency/Duration: M-F Date Range for Service Requested: Time to Reassess: Patient presents with mild dysarthria and mild expressive aphasia secondary to acute CVA. We discussed utilizing circumlocution to self-cue for words when he is experiencing word retrieval difficulty and to facilitate listener conversation. We also discussed strategies for caregivers, to avoid giving him words but rather to provide clues (i.e. It starts with ham... for hammock ). Patient is recommended to continue speech therapy during inpatient stay (M-F) and after discharge. Per RN, plan at this time is for patient to discharge to rehab. Patient Education: Completed: Yes Patient/Caregiver Education: Described Results of Evaluation Family/Caregivers expressed understanding of results Comments/Barriers to Learning: Bookkeeping Machine Mechanic Clinican/Clinical Fellow: No Supervisory Statement: N/A Speech Language Pathologist: Asmita Munoz M.A., CCC-CUSTOM MOTORCYCLE PAINTER
--- NOTE | 2024-06-01 15:00 | CA_ITS ---
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 The visually estimated ejection fraction is between 60-65%. Diastolic function is normal for age. - Normal right ventricular cavity size and systolic function. - There is no evidence of interatrial shunt by agitated saline. Findings Procedure Information Contrast agent, definity, is being given per protocol without apparent complications. Left Ventricle Normal left ventricular size, thickness, systolic function, and wall motion. The visually estimated ejection fraction is between 60-65%. Diastolic function is normal for age. Right Ventricle Normal right ventricular cavity size and systolic function. Atria The left atrium is normal in size. There is no evidence of interatrial shunt by agitated saline. The right atrium is likely dilated. Aortic Valve There is a normal trileaflet aortic valve. There is no aortic valve stenosis. There is no aortic valve regurgitation. Mitral Valve The mitral valve appears normal. There is no mitral valve regurgitation. There is no mitral valve stenosis. Pulmonic Valve The pulmonic valve is normal. There is no pulmonic valve regurgitation. Tricuspid Valve Normal tricuspid valve structure. There is no tricuspid valve regurgitation. Tricuspid regurgitation envelope is inadequate for calculation of right ventricular systolic pressure. Normal right atrial pressure. Great Vessels All visible segments of the aorta are normal in size. Venous The inferior vena cava is normal in size and collapses greater than 50% with inspiration. Pericardium/Pleural Prominent epicardial adipose tissue noted. There is no evidence of pericardial effusion. Prior Study Comparison No prior study available for comparison. Measurements 2D Linear Measurements IVSd: 0.99 0.6-0.9/0.6-1.0 cm LVIDd: 4.42 3.9-5.3/4.2-5.9 cm LVIDd Index: 2.13 2.4-3.2/2.2-3.1 cm/m2 LVIDs: 2.74 2.0-3.6 cm LVPWd: 0.76 0.7-1.1 cm LA Diam: 3.40 2.7-3.8/3.0-4.0 cm LAIDs Index: 1.63 1.5-2.3 cm/m2 LV Mass: 154.36 67-162/88-224 g LV Mass Index: 74.21 43-95/49-115 g/m2 LVOT Diam: 2.30 3.0+(-)1.3 cm 2D Systolic Function EF 4C: 58.80 >55% EF 2C: 58.80 >55% EF BiP: 58.50 >55% Mitral Valve MV Pk E: 0.60 MV PK A: 0.76 MV Decel Time: 212.00 E/A: 0.80 E'Lateral: 9.79 E'Medial: 6.64 E/E' Med: 9.00 E/E' Lat: 6.10 PHT: 62.00 MVA PHT: 3.55 Decel Rusk: 2.80 Aortic Valve AoV Pk Nagi: 1.51 AoV Mn Nagi: 1.03 AoV VTI: 0.27 AoV Pk Grad: 9.00 Aov Mn Grad: 5.00 MARCELINA Cont.VTI: 2.71 LVOT LVOT Pk Nagi: 0.91 LVOT Mn Nagi: 0.57 LVOT VTI: 0.18 LVOT Pk Grad: 3.00 LVOT Mn Grad: 1.00 LVOT Diam: 2.30 LVOT Area: 4.15 Diastolic Function MV Pk E: 0.60 MV Pk A: 0.76 E/A: 0.80 E'Medial: 6.64 E/E' Med: 9.00 E' Laterial: 9.79 E/E' Lat: 6.10 Right Ventricle TAPSE (mm): 24.30 TVS' Nagi: 16.20 Tricuspid Valve RA Press: 3.00 Great Vessels Aorta Sinus of Valsalva: 3.62 2.0-3.5 cm Updated in Other Vendor System with Status of Final Esvin Morales MD electronically signed on 06/02/2024 11:35:53 AM with status of Final
[2024-06-01] MEDS: Enoxaparin Sodium 40 MG/0.4 ML SYRINGE SUBCUT (15:51)
[2024-06-01] MEDS: Atorvastatin Calcium 40 MG TABLET PO (19:57)
[2024-06-02] VITALS (7 sets, daily range): BP systolic 120–143; BP diastolic 67–86; PULSE 68–90; RESP 18–20; TEMP 36.5–36.8; O2SAT 93–95
[2024-06-02] MEDS: Aspirin Enteric Coated 81 MG TABLET.DR PO (08:16)
[2024-06-02] MEDS: 0.9 % Sodium Chloride Flush 3 ML SYRINGE IVFLUSH ×2 (08:17→15:30)
[2024-06-02] MEDS: Meclizine HCl 25 MG TABLET PO (08:19)
--- NOTE | 2024-06-02 08:51 | P.PNIM_ITS ---
Subjective Subjective Date of Service: 06/02/24 Interval History: dizzyness, left sdied weakness, vision changes improving Physical Exam 2 Vital Signs: Vital Signs: Last Vital Signs Temp 97.8 F 06/02/24 07:32 Pulse 68 06/02/24 08:49 Resp 18 06/02/24 07:32 BP 142/86 H 06/02/24 08:49 Pulse Ox 95 06/02/24 08:49 O2 Del Method Room Air 06/02/24 07:32 BMI result Body Mass Index 31.8 Neuro: Other: Alert and awake with normal spontaneity of speech fluency comprehension and affect. Speech is slightly dysarthric. There is mild right jqnnpx-yk-mkty ataxia. Face is symmetrical. Visual kapoor are full. There is otherwise no focal weakness. Objective Data Active Medications Acetaminophen (Acetaminophen 325 Mg Tablet) 650 mg PO Q6H PRN PRN Reason: Pain, Mild (Pain Scale 1-3), fever or headache Aspirin (Aspirin Enteric Coated 81 Mg Tablet.) 81 mg PO DAILY [facility] Last Admin: 06/02/24 08:16 Dose: 81 mg Documented By: GAY Atorvastatin Calcium (Atorvastatin Calcium 40 Mg Tablet) 40 mg PO BEDTIME [facility] Last Admin: 06/01/24 19:57 Dose: 40 mg Documented By: MYRNA Benzonatate (Benzonatate 100 Mg Capsule) 100 mg PO TID PRN PRN Reason: Cough Calcium Carbonate (Calcium Carbonate 750 Mg Tab.Chew) 750 mg PO Q4H PRN PRN Reason: Heartburn Enoxaparin Sodium (Enoxaparin Sodium 40 Mg/0.4 Ml Syringe) 40 mg SUBCUT Q24H [facility] Last Admin: 06/01/24 15:51 Dose: 40 mg Documented By: MYRNA Magnesium Hydroxide (Milk Of Magnesia 30 Ml Oral.Susp) 30 ml PO DAILY PRN PRN Reason: Constipation Meclizine HCl (Meclizine Hcl 25 Mg Tablet) 25 mg PO DAILY PRN PRN Reason: dizziness Last Admin: 06/02/24 08:19 Dose: 25 mg Documented By: GAY Melatonin (Melatonin 3 Mg Tablet) 6 mg PO BEDTIME PRN PRN Reason: Insomnia Ondansetron HCl (Ondansetron Hcl 4 Mg/2 Ml Vial) 4 mg IVPUSH Q8H PRN PRN Reason: Nausea and Vomiting Sodium Chloride (0.9 % Sodium Chloride Flush 3 Ml Syringe) 3 ml IVFLUSH QSHIFT [facility] Last Admin: 06/02/24 08:17 Dose: 3 ml Documented By: GAY Labs 05/31/24 08:26 05/31/24 08:26 Labs: Laboratory Results - last 24 hr 05/31/24 08:26 TSH 1.80 Assessment and Plan (1) Acute CVA (cerebrovascular accident): Status: Acute Plan 59M presented with ataxia, dysarthria, left sided weakness acute right harjit cva continue asa, statin unremarkbale Carotid doppler, follow up echo pt/ot recommending acute rehab hyperlipidema ldl 170, starting on lipitor dvt prophylaxis - lovenox full code reason for continued hospitalization: awaiting acute rehab Quality Stroke Does the patient have a stroke diagnosis?: Yes Reason for No Anti-thrombotic by Day Two: Contraindicated (Outside of tNK therapeutic window.) VTE Prior VTE?: No VTE Risk Level:: Medical - moderate - high VTE Device Contraindication: Treatment Not Indicated VTE Drug Contraindication: N/A - Med Ordered
--- NOTE | 2024-06-02 12:26 | MHC.CM.PN ---
PT WILL NEED ACUTE REHAB, [facility] IS [facility]REFERR[facility] FOLLOWING, HOWEVER, UNABLE TO OBTAIN AUTH ON THE WEEKEND CM WILL FOLLOW UP ON TUESDAY
[2024-06-02] MEDS: Enoxaparin Sodium 40 MG/0.4 ML SYRINGE SUBCUT (15:25)
[2024-06-02] MEDS: Atorvastatin Calcium 40 MG TABLET PO (20:39)
[2024-06-03] VITALS (7 sets, daily range): BP systolic 111–133; BP diastolic 64–81; PULSE 74–89; RESP 18–20; TEMP 36.1–36.8; O2SAT 90–94
[2024-06-03] MEDS: Aspirin Enteric Coated 81 MG TABLET.DR PO (07:59)
[2024-06-03] MEDS: 0.9 % Sodium Chloride Flush 3 ML SYRINGE IVFLUSH ×2 (08:00→20:20)
--- NOTE | 2024-06-03 08:37 | HO.PM.IMPN ---
Subjective Subjective Date of Service: 06/03/24 Interval History: dizzyness, left sdied weakness, vision changes improving Physical Exam Vital Signs: Vital Signs: Last Vital Signs Temp 98.0 F 06/03/24 07:16 Pulse 78 06/03/24 07:16 Resp 20 06/03/24 07:16 BP 121/74 06/03/24 07:16 Pulse Ox 93 06/03/24 07:16 O2 Del Method Room Air 06/03/24 07:16 BMI result Body Mass Index 31.8 Neuro: Other: Alert and awake with normal spontaneity of speech fluency comprehension and affect. Speech is slightly dysarthric. There is mild right ewsttf-bo-wqvk ataxia. Face is symmetrical. Visual kapoor are full. There is otherwise no focal weakness. Objective Data Active Medications Acetaminophen (Acetaminophen 325 Mg Tablet) 650 mg PO Q6H PRN PRN Reason: Pain, Mild (Pain Scale 1-3), fever or headache Aspirin (Aspirin Enteric Coated 81 Mg Tablet.) 81 mg PO DAILY [facility] Last Admin: 06/03/24 07:59 Dose: 81 mg Documented By: JOSE Atorvastatin Calcium (Atorvastatin Calcium 40 Mg Tablet) 40 mg PO BEDTIME [facility] Last Admin: 06/02/24 20:39 Dose: 40 mg Documented By: JEREL Benzonatate (Benzonatate 100 Mg Capsule) 100 mg PO TID PRN PRN Reason: Cough Calcium Carbonate (Calcium Carbonate 750 Mg Tab.Chew) 750 mg PO Q4H PRN PRN Reason: Heartburn Enoxaparin Sodium (Enoxaparin Sodium 40 Mg/0.4 Ml Syringe) 40 mg SUBCUT Q24H [facility] Last Admin: 06/02/24 15:25 Dose: 40 mg Documented By: GAY Magnesium Hydroxide (Milk Of Magnesia 30 Ml Oral.Susp) 30 ml PO DAILY PRN PRN Reason: Constipation Meclizine HCl (Meclizine Hcl 25 Mg Tablet) 25 mg PO DAILY PRN PRN Reason: dizziness Last Admin: 06/02/24 08:19 Dose: 25 mg Documented By: GAY Melatonin (Melatonin 3 Mg Tablet) 6 mg PO BEDTIME PRN PRN Reason: Insomnia Ondansetron HCl (Ondansetron Hcl 4 Mg/2 Ml Vial) 4 mg IVPUSH Q8H PRN PRN Reason: Nausea and Vomiting Sodium Chloride (0.9 % Sodium Chloride Flush 3 Ml Syringe) 3 ml IVFLUSH QSHIFT [facility] Last Admin: 06/03/24 08:00 Dose: 3 ml Documented By: JOSE Labs 05/31/24 08:26 05/31/24 08:26 Assessment and Plan (1) Acute CVA (cerebrovascular accident): Status: Acute Plan 59M presented with ataxia, dysarthria, left sided weakness acute right harjit cva continue asa, statin unremarkbale Carotid doppler, echo pt/ot recommending acute rehab hyperlipidema ldl 170, starting on lipitor dvt prophylaxis - lovenox full code reason for continued hospitalization: awaiting acute rehab Quality Stroke Does the patient have a stroke diagnosis?: Yes Reason for No Anti-thrombotic by Day Two: Contraindicated (Outside of [facility]NK therapeutic window.) VTE Prior VTE?: No VTE Risk Level:: Medical - moderate - high VTE Device Contraindication: Treatment Not Indicated VTE Drug Contraindication: N/A - Med Ordered
--- NOTE | 2024-06-03 13:43 | PC.NURSE ---
patient refusing bed alarm. patient educated on the significance of bed/chair alarm usage in preventing falls, but patient still refuses. call crawley within reach. MD notified.
[2024-06-03] MEDS: Enoxaparin Sodium 40 MG/0.4 ML SYRINGE SUBCUT (15:52)
[2024-06-03] MEDS: Meclizine HCl 25 MG TABLET PO (15:54)
[2024-06-03] MEDS: Atorvastatin Calcium 40 MG TABLET PO (20:19)
[2024-06-04 04:00] VITALS: BP 114/68; PULSE 75; RESP 18; TEMP 36.2; O2SAT 94
[2024-06-04 07:01] VITALS: BP 135/82; PULSE 82; RESP 18; TEMP 36.8; O2SAT 94
--- NOTE | 2024-06-04 08:38 | PM.DS ---
DS: Providers Provider Date of Service: 06/04/24 Date of admission: 05/31/24 15:07 Primary care physician: None Physician Consults: 05/31/24 15:10 Consult to Neurology Routine Consulting Provider: [facility] Reason for consultation: Acute CVA in harjit DS: Diagnosis Discharge Diagnosis (1) Acute CVA (cerebrovascular accident): Status: Acute DS: Summary Hospital Course Hospital Course: from initial hpi: 59-year-old male with no known significant PMH who has not seen a PCP in 30+ years who presents to the ED with dizziness, ataxia, loss of hearing in right ear, bilateral blurriness, and difficulty word finding x5 days. Patient states symptoms began last Tuesday when he was taking a shower and he felt a ?delacruz? coming up at him which brought him to his knees. Since then patient has experienced dizziness that feels like the room is spinning, partially alleviated with lying down and worsened with standing. Has been having difficulty walking. Also reports bilateral blurriness, unable to hear out of his right ear, and has been experiencing difficulty finding words. Denies any slurring. Denies any numbness or tingling or weakness in extremities. No headache. Denies chest/pressure, or palpitations. No shortness a breath or difficulty breathing. Patient previously presented to the ED on Monday 05/28 for similar symptoms. Was diagnosed with vertigo and sent home on meclizine. Since then patient reports symptoms have persisted and not alleviated with meclizine, and so he decided to re-presented to the ED for further evaluation today. Patient denies any significant change or worsening of symptoms since Tuesday. In the ED pt was Labs were grossly unremarkable and baseline for patient. No leukocytosis. Stable H&H. No significant electrolyte abnormalities. Renal and hepatic function WNL. Troponin negative. BNP negative. UA negative for UTI. Tested negative for flu, RSV, and COVID. CXR showed trace left pleural effusion. CT?of head showed no acute intracranial abnormality. MRI brain found acute infarct in the right ventral lateral aspect of the harjit. EKG demonstrated normal sinus rhythm with sinus arrhythmia and no significant ST elevations or depressions, similar to previous. Pt was treated with IVF, Ativan and aspirin. Pt will be admitted to the hospital for treatment and further evaluation of acute CVA. hospital course: Patient was admitted for acute right harjit CVA. Was treated with aspirin statin. Carotid Doppler and echo were unremarkable. Was seen by physical therapy and occupational therapy recommended acute rehab. Patient had some improvement in his symptoms ataxia, dizziness, left-sided weakness. But still with some deficits. Also noted to have hyperlipidemia with an LDL of 170. Patient is medically stable will be discharged to acute rehab. Time Attestation Discharge Coordination Time (in mins): 35 Quality: Safe Use of Opioids Does Pt have an Active Cancer Diagnosis on the Problem List?: No Quality: Stroke Does the patient have a stroke diagnosis?: Yes Reason for No Anti-thrombotic at DC: N/A - Med Ordered Reason for No Anticoagulant at DC: Drug treatment not indicated Reason Not Initiating IV-Tpa: Drug treatment not indicated Reason for No Anti-thrombotic by Day Two: N/A - Med Ordered Reason for No Statin at DC: N/A - Med Ordered Physical Exam Vital Signs: Vital Signs: Last Vital Signs Temp 98.2 F 06/04/24 07:01 Pulse 82 06/04/24 07:01 Resp 18 06/04/24 07:01 BP 135/82 06/04/24 07:01 Pulse Ox 94 06/04/24 07:01 O2 Del Method Room Air 06/04/24 07:01 BMI result Body Mass Index 31.8 Neuro: Other: Alert and awake with normal spontaneity of speech fluency comprehension and affect. Speech is slightly dysarthric. There is mild right lqofnb-ju-mwwc ataxia. Face is symmetrical. Visual kapoor are full. There is otherwise no focal weakness. Discharge Plan Discharge Anticipated Discharge Date/Time: 06/04/24 08:36 Patient Disposition: Xfer Inpatient Rehab Fac Discharge Diagnosis: cva Referrals: Physician,None [Primary Care Provider] - 1 Week Discharge Medications: New atorvastatin 40 mg Tablet 40 mg PO BEDTIME Qty: 0 0RF aspirin 81 mg Tablet,Delayed Release (Dr/Ec) 81 mg PO DAILY Qty: 0 0RF Continued meclizine 25 mg tablet 25 mg PO DAILY PRN (Reason: dizziness) Qty: 20 0RF Discharge Orders: Discharge Order (Routine); Ordered 06/04/24 Ordered By: Ihsan Hills Diet: Advance to usual diet Activity on Discharge: As tolerated Stand Alone Forms: Patient Portal Discharge page Print Language: Panamanian Care Plan Goals: recovery, prevent further strokes Health Concerns: cva Plan of Treatment: asa, statin, rehab Assessment: see above
[2024-06-04] MEDS: Aspirin Enteric Coated 81 MG TABLET.DR PO (08:57)
--- NOTE | 2024-06-04 09:08 | HO.PM.IMPN ---
Subjective Subjective Date of Service: 06/04/24 Interval History: dizzyness, left sdied weakness, vision changes improving Physical Exam Vital Signs: Vital Signs: Last Vital Signs Temp 98.2 F 06/04/24 07:01 Pulse 82 06/04/24 07:01 Resp 18 06/04/24 07:01 BP 135/82 06/04/24 07:01 Pulse Ox 94 06/04/24 07:01 O2 Del Method Room Air 06/04/24 07:01 BMI result Body Mass Index 31.8 Neuro: Other: Alert and awake with normal spontaneity of speech fluency comprehension and affect. Speech is slightly dysarthric. There is mild right hkogme-tr-qiln ataxia. Face is symmetrical. Visual kapoor are full. There is otherwise no focal weakness. Objective Data Active Medications Acetaminophen (Acetaminophen 325 Mg Tablet) 650 mg PO Q6H PRN PRN Reason: Pain, Mild (Pain Scale 1-3), fever or headache Aspirin (Aspirin Enteric Coated 81 Mg Tablet.) 81 mg PO DAILY [facility] Last Admin: 06/04/24 08:57 Dose: 81 mg Documented By: GERONIMO Atorvastatin Calcium (Atorvastatin Calcium 40 Mg Tablet) 40 mg PO BEDTIME [facility] Last Admin: 06/03/24 20:19 Dose: 40 mg Documented By: KAREN Benzonatate (Benzonatate 100 Mg Capsule) 100 mg PO TID PRN PRN Reason: Cough Calcium Carbonate (Calcium Carbonate 750 Mg Tab.Chew) 750 mg PO Q4H PRN PRN Reason: Heartburn Enoxaparin Sodium (Enoxaparin Sodium 40 Mg/0.4 Ml Syringe) 40 mg SUBCUT Q24H [facility] Last Admin: 06/03/24 15:52 Dose: 40 mg Documented By: MYNOR Magnesium Hydroxide (Milk Of Magnesia 30 Ml Oral.Susp) 30 ml PO DAILY PRN PRN Reason: Constipation Meclizine HCl (Meclizine Hcl 25 Mg Tablet) 25 mg PO DAILY PRN PRN Reason: dizziness Last Admin: 06/03/24 15:54 Dose: 25 mg Documented By: MYNOR Melatonin (Melatonin 3 Mg Tablet) 6 mg PO BEDTIME PRN PRN Reason: Insomnia Ondansetron HCl (Ondansetron Hcl 4 Mg/2 Ml Vial) 4 mg IVPUSH Q8H PRN PRN Reason: Nausea and Vomiting Sodium Chloride (0.9 % Sodium Chloride Flush 3 Ml Syringe) 3 ml IVFLUSH QSHIFT [facility] Last Admin: 06/03/24 20:20 Dose: 3 ml Documented By: KAREN Labs 05/31/24 08:26 05/31/24 08:26 Assessment and Plan (1) Acute CVA (cerebrovascular accident): Status: Acute Plan 59M presented with ataxia, dysarthria, left sided weakness acute right harjit cva continue asa, statin unremarkbale Carotid doppler, echo pt/ot recommending acute rehab hyperlipidema ldl 170, starting on lipitor dvt prophylaxis - lovenox full code reason for continued hospitalization: awaiting acute rehab Quality Stroke Does the patient have a stroke diagnosis?: Yes Reason for No Anti-thrombotic by Day Two: N/A - Med Ordered VTE Prior VTE?: No VTE Risk Level:: Medical - moderate - high VTE Device Contraindication: Treatment Not Indicated VTE Drug Contraindication: N/A - Med Ordered
[2024-06-04] MEDS: 0.9 % Sodium Chloride Flush 3 ML SYRINGE IVFLUSH (09:12)
--- NOTE | 2024-06-04 10:00 | MHC.STROKE ---
Met with patient and his significant other to discuss stroke education. Recharger utilized at the bedside. We reviewed the stroke packet, discussed patient's risk factors and rehabilitation. Patient was also provided a handout of where his stroke was located and the symptoms that are typical with this type of stroke. All patient and significant other questions answered. Dr. Hills also spoke to patient in regards to discharge plan/rehab options. Will continue to assist as needed.
[2024-06-04 10:52] VITALS: BP 130/77; PULSE 78; RESP 18; TEMP 36.3; O2SAT 93
--- NOTE | 2024-06-04 10:58 | MHC.CM.PN ---
Patient is medically cleared for dc to Acute Rehab today. Patient's first choice [facility] has accepted Patient and they are initiating [facility] today.CM will follow.
--- NOTE | 2024-06-04 13:57 | MHC.CM.PN ---
Patient will dc to [facility] today at 5:30 PM, via [facility].
[2024-06-04 15:24] VITALS: BP 136/74; PULSE 87; RESP 16; TEMP 36.4; O2SAT 95
== END 2024-06-04 17:48 | DRG 45 ==
LOC: HO.ED 13:55 → HO.EDOVER 15:23 → HO.IMC 15:46
PROVIDERS: Admitting Provider Student in an Organized Health Care Education/Training Program; Emergency Provider Emergency Medicine; Visit Provider Internal Medicine
DX: I63.29 Cerebral infarction due to unspecified occlusion or stenosis of other precerebral arteries (principal); E78.5 Hyperlipidemia, unspecified; H91.91 Unspecified hearing loss, right ear; R27.0 Ataxia, unspecified; Z20.822 Contact with and (suspected) exposure to COVID-19; Z79.899 Other long term (current) drug therapy
CPT/HCPCS: 0241U; 36415; 70450; 70551; 71045; 80048; 80061; 80076; 81003; 83690; 83880; 84443; 84484; 85025; 92523; 93005; 93306; 93880; 97110; 97116; 97162; 97166; 99285; J1650; Q9957

== ENCOUNTER → 2024-05-31 08:05 | Outpatient (BNV) | payer OTHER, SELFPAY | PROVIDERS: Admitting Provider Student in an Organized Health Care Education/Training Program; Emergency Provider Emergency Medicine; Visit Provider Internal Medicine Cardiovascular Disease | DX: R42 Dizziness and giddiness (principal); R94.31 Abnormal electrocardiogram [ECG] [EKG] | CPT/HCPCS: 93010 ==

== ENCOUNTER 2024-05-31 15:07 | Outpatient (BNV) | payer OTHER, SELFPAY | END 2024-06-01 15:00 | PROVIDERS: Admitting Provider Student in an Organized Health Care Education/Training Program; Emergency Provider Emergency Medicine; Visit Provider Internal Medicine Cardiovascular Disease | DX: I63.9 Cerebral infarction, unspecified (principal) | CPT/HCPCS: 93306 ==

== ENCOUNTER → 2024-05-31 15:07 | Outpatient (BNV) | payer OTHER, SELFPAY | PROVIDERS: Admitting Provider Student in an Organized Health Care Education/Training Program; Emergency Provider Emergency Medicine; Visit Provider Student in an Organized Health Care Education/Training Program | DX: I63.9 Cerebral infarction, unspecified (principal) | CPT/HCPCS: 99223; 99231; 99232; 99239; 99499 ==

== ENCOUNTER → 2024-05-31 15:07 | Outpatient (BNV) | payer OTHER, SELFPAY | PROVIDERS: Admitting Provider Student in an Organized Health Care Education/Training Program; Emergency Provider Emergency Medicine; Visit Provider Psychiatry & Neurology Neurology | DX: I63.9 Cerebral infarction, unspecified (principal) | CPT/HCPCS: 99222 ==

== ENCOUNTER 2024-08-23 17:47 | Emergency (ER) | payer OTHER, SELFPAY ==
[2024-08-23 18:05] VITALS: BP 118/78; PULSE 93; RESP 20; TEMP 36.6; O2SAT 94; BMI 31.8
--- NOTE | 2024-08-23 18:06 | ED.GENADULT ---
HPI - General Adult General Chief complaint: Dizziness Stated complaint: headache/sent by pcp ct scan results prior stroke Time Seen by Provider: 08/23/24 20:47 Source: patient Limitations: no limitations History of Present Illness ED Provider: Sangita Giordano PA-C HPI narrative: 59-year-old male with history of prior CVA, hyperlipidemia, presents with concerning MRI results. Patient had a stroke in May of this year, since the stroke he has been having a right-sided posterior headache with transient dizziness. Associated gait instability at times. Patient has since developed a ?buzzing? in the right ear. Patient saw his primary care provider as an outpatient, an MRI of the brain was obtained, the patient was notified today that he should come to the emergency department to be admitted to the hospital due to findings on the recent MRI. The patient is unaware of the results, he never spoke with his primary care provider, one of the nurses from the office called to inform him. Related Data Previous Rx's ?Medication ?Instructions ?Recorded meclizine 25 mg tablet 25 mg PO DAILY PRN dizziness #20 05/28/24 tabs aspirin 81 mg tablet,delayed 81 mg PO DAILY #0 tabs 06/04/24 release atorvastatin 40 mg tablet 40 mg PO BEDTIME #0 tabs 06/04/24 atorvastatin 40 mg tablet 40 mg PO BEDTIME #90 tabs 08/24/24 Allergies Allergy/AdvReac Type Severity Reaction Status Date / Time No Known Allergies Allergy Verified 08/23/24 18:08 Review of Systems Review of Systems: Yes all other systems are reviewed and are negative Constitutional: Constitutional: Denies fatigue, Denies fever(s) and Reports headache(s) ENT: Reports dizziness and Reports headache(s) Cardiovascular: Cardiovascular: Denies chest pain and Denies dyspnea Respiratory: Respiratory: Denies dyspnea Gastrointestinal: Gastrointestinal: Denies nausea and Denies vomiting Neurologic: Reports dizziness and Reports headache(s) Endocrine: Endocrine: Denies fatigue PMFSH Past Medical History Attestation statement: The following information was validated with the patient. Social History Social History Household Members: Spouse Housing: House Do you presently have visiting nurse or other home services: No Comment: at bedside Patient Tobacco Use Status: Never used Tobacco Smoked in Last 30 Days: No Use of substances other than those prescribed or required for medical reasons: No Advance Directives: No Advance Directives Information Provided: No Do you have a plan to hurt others: No Plan service: No Physical Exam ED Vital Signs: Vital Signs - 24 hr 08/23/24 18:05 08/23/24 19:51 08/23/24 23:56 Temperature 97.8 F 97.3 F 97.8 F Pulse Rate 93 80 76 Respiratory Rate 20 16 20 Blood Pressure 118/78 127/82 110/76 Pulse Oximetry 94 95 94 Oxygen Delivery Method Room Air Room Air Room Air 08/24/24 02:45 08/24/24 06:00 Temperature 97.8 F Pulse Rate 71 71 Respiratory Rate 12 13 Blood Pressure 119/78 Pulse Oximetry 97 Oxygen Delivery Method Room Air BMI result Body Mass Index 31.8 Const Other: Alert, overall well in appearance Orientation/consciousness: patient oriented x3 Eyes Other: No nystagmus noted Resp Other: Nonlabored respiration Cardio Other: Normal peripheral perfusion Skin Other: Warm dry no rash Neuro Other: Ambulates with normal steady gait, no ataxia, Romberg negative General: patient oriented x3, no focal motor deficits and CN's II-XI intact bilaterally Extrem Other: Strength 5/5 bilateral upper and lower extremities Psych Other: Calm cooperative Course Course Course Narrative: RME, this is a rapid medical exam performed by Arron Galarza please refer to primary provider for complete H&P- 59-year-old male presents for evaluation of a posterior headache for the last week, unsteady gait. He saw his primary doctor and had imaging of his brain 6 days ago at [facility]. He reports his doctor told him to come here because of an abnormal finding. Plan to try and get these records. We will get labs Medical Decision Making Medical Decision Making MDM Narrative: 59-year-old male with history of prior CVA, hyperlipidemia, presents with concerning MRI results. Patient had a stroke in May of this year, since the stroke he has been having a right-sided posterior headache with transient dizziness. Associated gait instability at times. Patient has since developed a ?buzzing? in the right ear. Patient saw his primary care provider as an outpatient, an MRI of the brain was obtained, the patient was notified today that he should come to the emergency department to be admitted to the hospital due to findings on the recent MRI. The patient is unaware of the results, he never spoke with his primary care provider, one of the nurses from the office called to inform him. Problem: Prior stroke History: Per patient I have considered the following differential diagnoses: New infarct, new intracranial mass, aneurysm, Plan: Multiple attempts were made to obtain imaging. There was not an expect note in the system from his primary care office. Patient is seen by Dr. Cm at [facility]. I attempted to obtain imaging I called the on-call at [facility], I was told by the answering service that the provider on-call was unable to access [employer], their EMR. The patient will have to be held as physician obs until we can obtain imaging in the morning. When the patient presented to triage, screening labs were obtained I have independently reviewed the following tests: Labs: No leukocytosis, not anemic, troponin negative, viral panel negative 08/24/2024 at 07:07 hours, Dr. Raúl Camarena's note: I assumed care of this patient from my colleague, Dr. Morgan at 07:00 hours. Patient was referred to the emergency department for an abnormal MRI result however this result was unobtainable and the patient was kept in the emergency department overnight to be evaluated in the morning. Patient was a 59-year-old male was admitted who was admitted on 05/31/2024 for an acute right harjit stroke. Patient's workup revealed no significant carotid artery stenosis, he did have an elevated cholesterol and he was discharged on atorvastatin 40 mg daily and aspirin 81 mg daily. Patient states that he has not been taking his atorvastatin but he was taking his aspirin. Patient states that since having his stroke in May of 2024 he was had a constant headache. He states the headache is located in the posterior part of his head and has difficulty describing it. Headache seems to be worse at night when he lies down. He states that he also has a slight spinning sensation when he stands up and when he starts walking but this resolves quickly. Patient states that he saw his primary care doctor 3 weeks prior who ordered an MRI given his symptoms. He states that he was contacted earlier in the week and was told that he should go to the emergency department due to his positive MRI result. Patient does not know what the MRI showed but he states that none of his symptoms are new and they have been constant since his last stroke. Patient denied change in his vision, numbness, weakness, loss of bowel or bladder control. He states that he is able to do his job without any limitations. Physical examination revealed an awake alert male who was in no distress. Patient has no temporal artery tenderness. Patient has no nystagmus. Cerebellar exam revealed normal [id number]-ra-dpta-[id number]-finger, normal heel to griffin. Patient has negative Romberg. Patient was able to walk without any ataxia. At this time we are not able to obtain his MRI result but I do not think that he has had an acute stroke and does not need to be admitted at this time and I did discuss this with the patient. I did represcribed the patient's atorvastatin 40 mg at night and gave him a 90 day supply. I instructed him to contact his PCP today to further discuss his MRI result. Lab Data 08/23/24 18:38 08/23/24 18:37 Labs: Lab Results 08/23/24 08/23/24 Range/Units 18:37 18:38 WBC 8.3 (4.8-10.8) X10*3/uL RBC 5.37 (4.60-5.80) X10*6/uL Hgb 15.6 (14.0-18.0) g/dl Hct 46.4 (42.0-52.0) % MCV 86.4 (80.0-98.0) fL MCH 29.1 (27.0-33.0) pg MCHC 33.6 (31.0-36.0) g/dl RDW 13.0 (11.0-16.0) % Plt Count 222 (160-400) X10*3/uL MPV 10.8 (9.4-12.4) fL Immature Gran % (Auto) Cancelled Neut % (Auto) Cancelled Lymph % (Auto) Cancelled Whitfield % (Auto) Cancelled Eos % (Auto) Cancelled Baso % (Auto) Cancelled Lymph # (Auto) Cancelled Whitfield # (Auto) Cancelled Eos # (Auto) Cancelled Baso # (Auto) Cancelled Abs Immat Gran (auto) Cancelled Absolute Neuts (auto) Cancelled Absolute Nucleated RBC 0.000 (0.0-0.012) X10*3/uL Nucleated RBC % (auto) 0.0 (0.0-0.2) /100WBC Neutrophils % (Manual) 46 (45-73) % Band Neutrophils % 0 L (3-5) % Lymphocytes % (Manual) 49 H (20-40) % Monocytes % (Manual) 2 (2-11) % Eosinophils % (Manual) 1 (0-4) % Basophils % (Manual) 1 (0-2) % Metamyelocytes % 1 % Abs Neuts (Manual) 3.8 (2.0-8.3) X10*3/uL Lymphocytes # (Manual) 4.1 (1.2-4.9) X10*3/uL Monocytes # (Manual) 0.2 (0.1-1.2) X10*3/uL Eosinophils # (Manual) 0.1 (0.0-0.4) X10*3/uL Basophils # (Manual) 0.1 (0.0-0.2) X10*3/uL Metamyelocytes # 0.1 X10*3/uL Platelet Estimate NORMAL (NORMAL) Plt Morphology Comment NORMAL RBC Morphology NORMAL PT 11.6 (10.9-12.4) SEC INR 1.0 (0.9-1.1) Sodium 144 (135-145) mmol/L Potassium 4.5 (3.3-5.1) mmol/L Chloride 108 (96-108) mmol/L Carbon Dioxide 28 (22-29) mmol/L Anion Gap 13 (12-20) BUN 14 (9-16) mg/dL Creatinine 0.88 (0.5-1.4) mg/dL Estim Creat Clear Calc 100.9 Estimated GFR > 60 Random Glucose 101 (60-115) mg/dL Calcium 9.7 (8.4-10.2) mg/dL Magnesium 2.3 (1.6-2.6) mg/dL Total Bilirubin 0.3 (0.0-1.0) mg/dL AST 20 (5-37) U/L ALT 36 (0-40) U/L Alkaline Phosphatase 77 (39-117) U/L Troponin I High Sens < 2.7 (<3.5-35.0) ng/L Total Protein 7.2 (6.5-8.0) g/dL Albumin 4.1 (3.5-5.0) g/dL Lipase 33 (8-78) U/L Influenza Type A (PCR) NEGATIVE (Negative) Influenza Type B (PCR) NEGATIVE (Negative) RSV RNA Qual (PCR) NEGATIVE (Negative) SARS-CoV-2 RNA (RT-PCR) NEGATIVE (Negative) Discharge Plan Discharge Clinical Impression: Headache, Dizziness, Ataxia Patient Disposition: Home, Self-Care Additional Instructions: Your physical examination/neurologic exam revealed no significant findings to suggest that you had a new stroke. When you were here in May of 2024 you were diagnosed with a new stroke of the right side of the harjit (this is the back of your brain that controls your balance). Your symptoms of dizziness with moving her head and with standing and walking is consistent with his old stroke and hopefully will improve over the next 3-6 months. Your laboratory evaluation today was normal. Your COVID-19, influenza and RSV tests were normal. When you were hospitalized you had an elevated cholesterol in the neurologist recommended that you be treated with Lipitor (atorvastatin) 40 mg once a day. You should start this medication and take 1 pill at night and follow up with your doctor for further evaluation of your high cholesterol. Continue taking your aspirin 81 mg daily. Call your doctor's office today and arrange a follow-up for re-evaluation. When you talk to your doctor's office tell them that you were seen in the emergency department and we do not think that you had a new stroke and that we think your symptoms are due to the right harjit stroke that you had in May of 2024. We were unable to obtain your MRI result from [facility] but at this time I do not think that you a new stroke and you should talk to your doctor about the MRI result. Prescriptions: New atorvastatin 40 mg tablet 40 mg PO BEDTIME Qty: 90 0RF No Action meclizine 25 mg tablet 25 mg PO DAILY PRN (Reason: dizziness) Qty: 20 0RF atorvastatin 40 mg Tablet 40 mg PO BEDTIME Qty: 0 0RF aspirin 81 mg Tablet,Delayed Release (Dr/Ec) 81 mg PO DAILY Qty: 0 0RF Print Language: Paraguayan
--- NOTE | 2024-08-23 18:07 | ECG_ITS ---
Test Reason : dizzness Blood Pressure : / mmHG Vent. Rate : 090 BPM Atrial Rate : 090 BPM P-R Int : 136 ms QRS Dur : 096 ms QT Int : 364 ms P-R-T Axes : 080 029 053 degrees QTc Int : 445 ms Normal sinus rhythm Normal ECG When compared with ECG of 31-MAY-2024 08:09, No significant change was found Referred By: Steven Galarza Electronically Signed By:Esvin Morales
[2024-08-23 18:43] LABS: Hematocrit 46.4 % (42.0-52.0); Hemoglobin 15.6 g/dl (14.0-18.0); Mean Corpuscular HGB Conc 33.6 g/dl (31.0-36.0); Mean Corpuscular Hemoglobin 29.1 pg (27.0-33.0); Mean Corpuscular Volume 86.4 fL (80.0-98.0); Mean Platelet Volume 10.8 fL (9.4-12.4); Platelet Count 222 X10*3/uL (160-400); Red Blood Count 5.37 X10*6/uL (4.60-5.80)
[2024-08-23 18:46] LABS: WBC ABN SCTR FOR CBC 1; White Blood Count 8.3 X10*3/uL (4.8-10.8)
[2024-08-23 18:49] LABS: Prothrombin Time 11.6 SEC (10.9-12.4)
[2024-08-23 19:01] LABS: Alanine Aminotransferase 36 U/L (0-40); Albumin Level 4.1 g/dL (3.5-5.0); Alkaline Phosphatase 77 U/L (39-117); Anion Gap 13 (12-20); Aspartate Amino Transferase 20 U/L (5-37); Bilirubin Total 0.3 mg/dL (0.0-1.0); Blood Urea Nitrogen 14 mg/dL (9-16); Calcium 9.7 mg/dL (8.4-10.2); Carbon Dioxide 28 mmol/L (22-29); Chloride 108 mmol/L (96-108); Creatinine Clr Calc Pharmacy 100.9; Estimated Glomerular Filt Rate > 60; Glucose Random 101 mg/dL (60-115); Lipase 33 U/L (8-78); Magnesium 2.3 mg/dL (1.6-2.6); Potassium 4.5 mmol/L (3.3-5.1); Sodium 144 mmol/L (135-145); Total Protein 7.2 g/dL (6.5-8.0)
[2024-08-23 19:09] LABS: Troponin-I High Sensitivity < 2.7 ng/L (<3.5-35.0)
[2024-08-23 19:12] LABS: Band Neutrophils Percent 0 % (3-5); Basophils Abs Manual 0.1 X10*3/uL (0.0-0.2); Basophils Percent Manual 1 % (0-2); Eosinophils Absolute Manual 0.1 X10*3/uL (0.0-0.4); Eosinophils Percent Manual 1 % (0-4); Lymphocytes Absolute Manual 4.1 X10*3/uL (1.2-4.9); Lymphocytes Percent Manual 49 % (20-40); Metamyelocytes Absolute 0.1 X10*3/uL; Metamyelocytes Percent 1 %; Monocytes Absolute Manual 0.2 X10*3/uL (0.1-1.2); Monocytes Percent Manual 2 % (2-11); Neutrophils Absolute Manual 3.8 X10*3/uL (2.0-8.3); Neutrophils Percent Manual 46 % (45-73)
[2024-08-23 19:13] LABS: Platelet Estimate NORMAL (NORMAL); Platelet Morphology Comment NORMAL; RBC Morphology NORMAL
[2024-08-23 19:20] LABS: Influenza A PCR NEGATIVE (Negative); Influenza B PCR NEGATIVE (Negative); Resp Syncy Virus RNA Qual PCR NEGATIVE (Negative); SARS COV2 PCR INHOUSE NEGATIVE (Negative)
[2024-08-23 19:51] VITALS: BP 127/82; PULSE 80; RESP 16; TEMP 36.3; O2SAT 95
--- NOTE | 2024-08-23 23:45 | PC.NURSE ---
Assumed care of pt at 2245. PT a/o, denies pain at this time. Place on vehicle monitor technician. Awaiting decision from provider regarding plan of care- possible admit or phys obs with MRI ordered.
[2024-08-23 23:56] VITALS: BP 110/76; PULSE 76; RESP 20; TEMP 36.6; O2SAT 94
[2024-08-24 02:45] VITALS: PULSE 71; RESP 12
[2024-08-24 06:00] VITALS: BP 119/78; PULSE 71; RESP 13; TEMP 36.6; O2SAT 97
--- NOTE | 2024-08-24 06:23 | PC.NURSE ---
assumed care of pt at 03:15. pt has been resting comfortably on stretcher in no apparent distress, call crawley within reach.
[2024-08-24 07:30] VITALS: BP 119/78; PULSE 71; RESP 18; TEMP 36.6; O2SAT 97
== END 2024-08-24 07:30 | disposition home or self-care (01) ==
PROVIDERS: Physician Assistant; Emergency Provider Emergency Medicine Emergency Medical Services
DX: R51.9 Headache, unspecified (principal); R42 Dizziness and giddiness; Z03.818 Encounter for observation for suspected exposure to other biological agents ruled out; Z79.899 Other long term (current) drug therapy
CPT/HCPCS: 0241U; 80053; 83690; 83735; 84484; 85007; 85027; 85610; 93005; 99284; 99285

== ENCOUNTER → 2024-08-23 18:07 | Outpatient (BNV) | payer OTHER, SELFPAY | PROVIDERS: Emergency Provider Emergency Medicine Emergency Medical Services; Visit Provider Internal Medicine Cardiovascular Disease | DX: R42 Dizziness and giddiness (principal) | CPT/HCPCS: 93010 ==

== ENCOUNTER 2025-06-21 09:47 | Emergency (ER) | payer OTHER, SELFPAY ==
--- NOTE | ~2025-06-21 | MR_ITS ---
EXAMINATION: MR BRAIN WITHOUT CONTRAST CLINICAL INFORMATION: Dizziness. COMPARISON: May 31, 2024 TECHNIQUE: MRI of the brain was obtained using routine sequences without contrast. FINDINGS: Patient's motion artifact. No restricted diffusion. No acute intracranial hemorrhage, mass effect, midline shift, hydrocephalus or herniation. Bilateral multifocal patchy and punctate subcortical deep white matter hyperintense T2 FLAIR signal involving centrum semiovale and palacios radiata. Hyperintense T2 FLAIR signal within the right lateral harjit extending into the right middle cerebellar peduncle. Hyperintense T2 FLAIR signal within the midline of the harjit. Sellar/suprasellar region is normal. Craniocervical junction demonstrates normal position of the cerebellar tonsils. Flow-void signal within the main cerebral vessels is normal. Mucosal thickening, ethmoid cells. Retention cyst, left maxillary sinus. No intraparenchymal lymph nodes in the parotid glands. MR/MR head/brain wo con IMPRESSION: No acute stroke/nonhemorrhagic ischemia. Small vessel occlusive disease. 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 Electronically signed by: Shekhar Brar MD 06/21/2025 02:20 PM EDT
--- NOTE | ~2025-06-21 | CT_ITS ---
EXAMINATION: CT HEAD WITHOUT CONTRAST CLINICAL INFORMATION: dizziness COMPARISON: May 31, 2024 TECHNIQUE: Contiguous axial imaging was performed from the skull base to vertex without intravenous administration of contrast. This CT examination was performed using dose optimization techniques as appropriate, variously including the following: *Automated exposure control *Adjustment of mA and/or kV according to patient size (this includes techniques or standardized protocols for targeted exams where dose is matched to indication/reason for exam; i.e. extremities or head) *Use of iterative reconstruction technique DLP: 653 mGy-cm FINDINGS: No acute intracranial hemorrhage, mass effect, midline shift, hydrocephalus or herniation. Biggs-white matter differentiation is normal. Posterior cranial fossa contents demonstrated no gross hemorrhage or mass effect. There is normal position of the cerebellar tonsils. Sellar/suprasellar region demonstrated no gross masses. No acute fracture in the bony calvarium. Mucosal thickening in the maxillary sinuses and ethmoid cells. Small volume of L2 levels in the right sphenoid sinus. Tympanic cavities and mastoid cells are aerated. Generative changes in the periodontal C1 region. No gross masses or fluid collections in the intraconal or extraconal compartments of the orbits Calcified plaques in the cavernous supracavernous segments both ICAs.. CT/CT head/brain wo IV con IMPRESSION: No acute intracranial hemorrhage or acute brain abnormality by CT. Mild acute on chronic paranasal sinus disease. Atherosclerosis disease, intracranial Electronically signed by: Shekhar Brar MD 06/21/2025 12:47 PM EDT
[2025-06-21 09:57] VITALS: BP 138/80; PULSE 97; RESP 18; TEMP 36.6; O2SAT 95; BMI 31.9
--- NOTE | 2025-06-21 10:02 | ECG_ITS ---
Test Reason : weakness Blood Pressure : */* mmHG Vent. Rate : 71 BPM Atrial Rate : 71 BPM P-R Int : 134 ms QRS Dur : 98 ms QT Int : 406 ms P-R-T Axes : 37 33 44 degrees QTcB Int : 441 ms Normal sinus rhythm Nonspecific T wave abnormality Abnormal ECG When compared with ECG of 23-Aug-2024 18:22, No significant change was found Referred By: Generic ED Physician Electronically Signed By: TUYET ELLISON MD
--- OUTSIDE RECORDS SUMMARY | 2025-06-21 10:18 | XMS_ITS | Clinical Summary ---
Author Organization [facility] [address] [place] [address] Address [address], [place] Phone Care Team Providers Care Rand Sewer Name Role Phone Mahnaz Campbell MD Primary Care Provider Allergies No known active allergies Medications atorvastatin (LIPITOR) 80 mg tablet Take 1 tablet (80 mg total) by mouth 1 (one) time each day. 90 each 1 01/15/2025 Active aspirin 81 mg EC tablet Take 1 tablet (81 mg total) by mouth 1 (one) time each day. 90 tablet 1 01/15/2025 Active meclizine (ANTIVERT) 12.5 mg tablet TAKE 1 TABLET BY MOUTH 1 TIME EACH DAY IF NEEDED FOR DIZZINESS. 30 tablet 2 04/17/2025 Active Active Problems Problem Noted Date Diagnosed Date Unsteadiness 01/16/2025 Memory loss 01/16/2025 Tinnitus of right ear 01/16/2025 History of dizziness 10/16/2024 History of CVA (cerebrovascular accident) 2023 Nonintractable episodic headache 10/16/2024 Hypercholesterolemia 10/16/2024 Blurred vision, bilateral 06/22/2024 Cerebrovascular accident (CVA) (CMS/HCC V24, CMS /HCC V28) 06/22/2024 Decreased left patellar reflex 06/22/2024 Hearing loss of right ear 06/22/2024 Mixed hyperlipidemia 06/22/2024 Obesity (BMI 30-39.9) 06/22/2024 Social History Tobacco Use Types Packs/Day Years Used Date Smoking Tobacco: Never Assessed Sex and Gender Information Value Date Recorded Sex Assigned at Not on file Legal Sex Male 11:03 AM EDT Gender Identity Not on file Sexual Orientation Not on file Last Filed Vital Signs Vital Sign Reading Time Taken Comments Blood Pressure 116/72 01/15/2025 8:42 AM EDT Pulse 80 01/15/2025 8:42 AM EDT Temperature 36.5 C (97.7 F) 01/15/2025 8:42 AM EDT Respiratory Rate 12 01/15/2025 8:42 AM EDT Oxygen Saturation - - Inhaled Oxygen Concentration - - Weight 95.3 kg (210 lb) 01/15/2025 8:42 AM EDT Height 172.7 cm (5' 8 ) 01/15/2025 8:42 AM EDT Body Mass Index 31.93 01/15/2025 8:42 AM EDT Plan of Treatment Upcoming Encounters Date Type Department Care Team (Late st Contact Info) Description 08/01/2025 11:00 AM EDT Office Visit Adult Medicine [facility] [place] [address] [place] [address] Mahnaz Campbell MD [address] [place] [address] Health Maintenance Due Date Last Done Comments DTaP,Tdap,and Td Vaccines (1 - Tdap) 1984 Pneumococcal Vaccine: 50+ Years (1 of 1 - PCV) 2015 Zoster Vaccines (1 of 2) 2015 Colorectal Cancer Screening: Colonoscopy 06/01/2024 HIV Screening 06/01/2024 Hepatitis C Screening 06/01/2024 Social Influencers of Health Screening 06/01/2024 COVID-19 Vaccine (1 - 2023-2 5 season) 2024 Depression Screening 10/31/2024 Influenza Vaccine (#1) 2025 Cholesterol Screening (Lipid Panel) 10/19/2029 10/19/2024, 07/26/2024, 07/26/2024 RSV Immunization Adult Patients (1 - 1-dose 75+ series) 2040 HIB Vaccines Aged Out No longer eligi ble based on patient's age to complete this topic HPV Vaccines Aged Out No longer eligi ble based on patient's age to complete this topic Hepatitis A Vaccines Aged Out No long er eligible based on patient's age to complete this topic Hepatitis B Vaccines Aged Out No long er eligible based on patient's age to complete this topic IPV Vaccines Aged Out No longer eligi ble based on patient's age to complete this topic MMR Vaccines Aged Out No longer eligi ble based on patient's age to complete this topic Meningococcal ACWY Vaccine Aged Out N o longer eligible based on patient's age to complete this topic Meningococcal B Vaccine Aged Out No l onger eligible based on patient's age to complete this topic RSV Immunization Patients Under 20 months Aged Out No longer eligible b ased on patient's age to complete this topic Varicella Vaccines Aged Out No longer eligible based on patient's age to complete this topic Procedures Procedure Name Priority Date/Time Associated Diagnosis Comments LIPID PANEL WITH REFLEX TO DIRECT LDL Routine 10/19/2024 8:28 AM EST Hypercholesterolemi a from Last 3 Months or Most Recently Relevant to Health Maintenance Results * Lipid panel with reflex to direct LDL (10/19/2024 8:28 AM EST) Cholesterol 152 0 - 200 mg/dL LAB CHEMISTRY METHOD 10/19/2024 10:18 AM [facility] Triglycerides 120 0 - 150 mg/dL LAB CHEMISTRY METHOD 10/19/2024 10:18 AM EST [facility] HDL 46 >=40 mg/dL LAB CHEMISTRY METHOD 10/19/2024 10:18 AM EST [facility] LDL Calculated 82 0 - 100 mg/dL LAB CHEMISTRY METHOD 10/19/2024 10:18 AM EST [facility] VLDL Cholesterol Jason 24 mg/dL LAB CHEMISTRY METHOD 10/19/2024 10:18 AM [facility] Non HDL Chol. (LDL+VLDL) 106 <145 mg/dL LAB CHEMISTRY METHOD 10/19/2024 10:18 AM [facility] Chol/HDL Ratio 3.3 0.0 - 4.4 LAB CHEMISTRY METHOD 10/19/2024 10:18 AM EST [facility] Blood Venous blood specimen / Unknown Venipuncture / Unknown 10/19/2024 8:28 AM EST 10/19/2024 8:28 AM EST us Mahnaz Campbell MD LAB BLOOD ORDERABLES Final Result [facility] [address] [place] [address], [place] [phone] from Last 3 Months or Most Recently Relevant to Health Maintenance Insurance [facility] [employer] Advance Directives Documents on File Type Date Recorded 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
--- OUTSIDE RECORDS SUMMARY | 2025-06-21 10:18 | XMS_ITS | Patient Health Record ---
Author Organization Brad Stein MD [facility] Address [address] [phone] Support Name Relationship Address Phone Brant Poole Guarantor Unknown Reason For Referral No Information Plan Of Treatment No Information Insurance Providers Payer Name Payer Address Payer Phone Subscriber Number Group Number Insured Name Patient Relationship to Insured Coverage Start Date Coverage End Date [employer] [address] [place] [address] [phone] [id number] Brant Poole Self - patient is the insured
--- OUTSIDE RECORDS SUMMARY | 2025-06-21 10:18 | XMS_ITS ---
Author Name [facility] Organization Unknown Care Team Organization Name Specialty Phone Email Start Date End Da te [facility] Rebekah Riggs Primary Care 01/05/2023
[2025-06-21 10:42] LABS: Hematocrit 46.3 % (42.0-52.0); Hemoglobin 15.0 g/dl (14.0-18.0); Mean Corpuscular HGB Conc 32.4 g/dl (31.0-36.0); Mean Corpuscular Hemoglobin 28.5 pg (27.0-33.0); Mean Corpuscular Volume 87.9 fL (80.0-98.0); NRBC Abs Auto 0.000 X10*3/uL (0.0-0.012); NRBC Pct Auto 0.0 /100WBC (0.0-0.2); Platelet Count 212 X10*3/uL (160-400); Red Blood Count 5.27 X10*6/uL (4.60-5.80)
[2025-06-21 10:44] LABS: WBC ABN SCTR FOR CBC 1
[2025-06-21 10:57] LABS: Alanine Aminotransferase 49 U/L (0-40); Albumin Level 4.2 g/dL (3.5-5.0); Alkaline Phosphatase 84 U/L (39-117); Anion Gap 12 (12-20); Aspartate Amino Transferase 25 U/L (5-37); Blood Urea Nitrogen 11 mg/dL (9-16); Calcium 9.0 mg/dL (8.4-10.2); Carbon Dioxide 26 mmol/L (22-29); Chloride 107 mmol/L (96-108); Creatinine Clr Calc Pharmacy 118.8; Estimated Glomerular Filt Rate > 60; Potassium 4.0 mmol/L (3.3-5.1); Sodium 141 mmol/L (135-145); Total Protein 7.0 g/dL (6.5-8.0)
[2025-06-21 11:05] LABS: Band Neutrophils Percent 1 % (3-5); Basophils Percent Manual 1 % (0-2); Lymphocytes Percent Manual 45 % (20-40); Monocytes Percent Manual 2 % (2-11); Neutrophils Percent Manual 51 % (45-73)
[2025-06-21 11:06] LABS: Troponin-I High Sensitivity < 2.7 ng/L (<3.5-35.0)
[2025-06-21 11:07] LABS: Acanthocytes 1+ (0-2) /OIF; Large Platelet PRESENT; RBC Morphology NOTED
--- NOTE | 2025-06-21 11:07 | ED.WEAKNESS ---
HPI - Weakness General Chief complaint: Weakness Stated complaint: Head Pain Unsteady Stroke 1 Yr Ago Time Seen by Provider: 06/21/25 10:37 Source: patient Mode of arrival: ambulatory Limitations: no limitations History of Present Illness ED Provider: Chanda Loya PA-C HPI Narrative: Patient reports to emergency department today for evaluation of generalized unsteadiness. He reports last night and when he got up to go to the bathroom he fell unsteady and slightly lightheaded. He reports at baseline having some ataxia to the left and leaning his body to the right to feel like he can go straight. He states it has been like this ever since he had a stroke last year. He did see neurology last june 01, 2024. He was seen here who had an unremarkable CT scans but he had an MRI that showed a medium size right brainstem to his pontine acute ischemic infarct. He is also found to have moderate amount of chronic microvascular ischemic changes. At that time patient had been binge drinking. Patient denies use of this since last year. Overall neurology recommended OT PT consultation baby aspirin statin an echo and to follow up with his primary care for a regular basis. no anticoagulation was initiated. Patient had a TTE the same day: Normal left ventricular size thickness and systolic function EF between 60-65% normal diastolic function. Essentially normal echo. Patient also reports getting a generalized headache last night that was mild like in nature not the worst he has ever had he did take Motrin for which helped it go away. He came here today because he still feels like the floor is uneven when he walks despite not walking crooked lead. He does not use any assistive devices to ambulate. No falls or trauma. No vision changes, paresthesias or limb weakness. No speech problems. When he woke up this morning headache was fully resolved. Patient is also reporting that he has chronic tinnitus in his right ear at baseline he has seen [facility] for this and they gave him dizziness medicine to take he has not taken it in a while he can not recall when he saw them last. No infectious sxs. No sxs. No change in appetite. He does not any meals or medications. He sees his PCP regularly, I have not missed any appts . Related Data Previous Rx's ?Medication ?Instructions ?Recorded meclizine 25 mg tablet 25 mg PO DAILY PRN dizziness #20 05/28/24 tabs aspirin 81 mg tablet,delayed 81 mg PO DAILY #0 tabs 06/04/24 release atorvastatin 40 mg tablet 40 mg PO BEDTIME #0 tabs 06/04/24 atorvastatin 40 mg tablet 40 mg PO BEDTIME #90 tabs 08/24/24 cetirizine 10 mg tablet 10 mg PO DAILY #90 tabs 06/21/25 fluticasone propionate 50 1 spray intranasal DAILY #16 grams 06/21/25 mcg/actuation nasal spray,suspension Allergies Allergy/AdvReac Type Severity Reaction Status Date / Time No Known Allergies Allergy Verified 06/21/25 09:59 Review of Systems Review of Systems: Yes all other systems are reviewed and are negative [facility] Past Medical History Attestation statement: The following information was validated with the patient. Source: old records reviewed and nursing notes reviewed Social History Social History Household Members: Spouse Housing: House Do you presently have visiting nurse or other home services: No Alcohol intake: former Comment: at bedside Patient Tobacco Use Status: Never used Tobacco Advance Directives Date on File: 06/05/24 service: No Physical Exam Vital Signs: Vital Signs: Last Vital Signs Temp 97.6 F 06/21/25 15:36 Pulse 67 06/21/25 15:36 Resp 18 06/21/25 15:36 BP 116/77 06/21/25 15:36 Pulse Ox 96 06/21/25 15:36 O2 Del Method Room Air 06/21/25 15:36 BMI result Body Mass Index 31.9 Const: General: cooperative, healthy appearing, comfortable, no acute distress, well developed, alert, awake and Physically active Nutritional Appearance: overweight Orientation/consciousness: patient oriented x3 Limitations: no limitations HEENT: Head: Yes normal to inspection, Yes No palpable skull fracture present and Yes normocephalic Ears: hearing grossly normal bilaterally, external ears normal, TM normal on the left, EAC's normal, mastoids normal, no periauricular adenopathy and other (white effusion white TM, chronic appearing, stenotic right ear canal) General nose exam: Normal external nose present, Normal nares present, Normal septum present, No nasal discharge present and Other nasal findings present (boggy nasal turbinates b/l no erythema or d/c) Face and sinus: Yes normal facial exam and Yes sinuses nontender Mouth: Normal oral and palatal mucosa present, lip normal, tongue normal, Normal salivary glands and ducts present, oropharynx normal and moist mucous membranes Teeth and gingiva: dentition normal Throat: Yes posterior oropharynx normal and Yes uvula midline Eyes: General: appearance normal, both eyes and all related structures Alignment and Position: alignment normal Periorbital: periorbital findings normal Eyelids: Yes eyelids normal Conjunctivae: conjunctivae normal Sclerae: sclerae normal Corneas: corneas normal Pupils: Equal, round and reactive pupils present EOM: EOMs intact bilaterally Direct Ophthalmoscopy: normal light reflex Neck: Neck: Yes normal visual inspection, Yes full ROM, Yes no lymphadenopathy, Yes no meningeal signs, Yes trachea midline and Yes supple Carotids: normal carotid upstroke Lymphatic: no lymphadenopathy noted Neuro: General: patient oriented x3 and no meningeal signs Cranial nerves: Yes CN's II-XII intact bilaterally, Yes Facial sensation intact/muscles of mastication intact and Yes Equal, round and reactive pupils present Gait exam (Neuro): Normal gait present Motor exam (neuro): 5/5 motor strength present throughout, Pronator motor function not present, no tremor noted, no asterixis and Motor fasciculations not present Sensory Exam: Normal double simultaneous stimulation for sensation and Abnormal double simultaneous stimulation for sensation Coordination: [id number] test normal and tandem gait normal Romberg Test: Negative Comatose Patient: corneal reflex present Extrem: General: Yes normal to inspection, Yes full ROM and Yes capillary refill normal Right upper extremity: normal to inspection Left upper extremity: normal to inspection Psych: Appearance: grossly normal Mental Status: mental status grossly normal Speech and movement: Normal speech and movement present Medical Decision Making Medical Decision Making [facility] Narrative: Well-appearing 60-year-old male presenting to emergency department today for evaluation of lightheadedness/dizziness. Upon arrival to ED he is afebrile and well-appearing. His NIH scale is 0 GCS of 15 A&O x4. For this reason a stroke code was not called. On physical exam he has a chronic appearing effusion of his right TM which very well could be causing his acute symptoms. There is also evidence for allergic rhinitis which is not treated no prior history of this. Based on his history however we will obtain labs as well as a CT of the head to look for any type of mass effect. We will consult case with my attending physician Dr. Campbell. Consulted with my attending physician Dr. Campbell. Plan to move forward with noncon Head CT and if remarkable will order MR brain. Labs reassuring. CT of the head is unremarkable. As his prior CVA was only notable on MRI, will now order in ED to best determine disposition and intervention moving forward. MRI reassuring. IMPRESSION: No acute stroke/nonhemorrhagic ischemia. Small vessel occlusive disease. 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 Patient's acute lightheadedness and dizziness likely due to his chronic ear effusion on the right side and as there was evidence for allergic rhinitis on exam we will recommend that he take an allergy medicine twice daily until improved and follow up again with the ENT. He was given strict ED precautions as well as reasons to follow up with his primary care provider patient demonstrated verbal understanding of this plan and agreed he was discharged home stable. Differential Diagnosis Differential Diagnoses: The differential diagnosis associated with the presentation includes see [facility] Admission/Observation Consideration of admission/observation: Escalation of care including admission/observation considered Patient would have been admitted to the hospital had his work up had any findings where hospital admission was appropriate and his clinical presentation warranted hospital admission. Lab Data [facility] Lab Attestation statement: I reviewed the patient's lab results. 06/21/25 10:36 06/21/25 10:36 Labs: Lab Results 06/21/25 Range/Units 10:36 WBC 6.7 (4.8-10.8) X10*3/uL RBC 5.27 (4.60-5.80) X10*6/uL Hgb 15.0 (14.0-18.0) g/dl Hct 46.3 (42.0-52.0) % MCV 87.9 (80.0-98.0) fL MCH 28.5 (27.0-33.0) pg MCHC 32.4 (31.0-36.0) g/dl RDW 13.2 (11.0-16.0) % Plt Count 212 (160-400) X10*3/uL MPV 11.1 (9.4-12.4) fL Immature Gran % (Auto) Cancelled Neut % (Auto) Cancelled Lymph % (Auto) Cancelled Screven % (Auto) Cancelled Eos % (Auto) Cancelled Baso % (Auto) Cancelled Lymph # (Auto) Cancelled Screven # (Auto) Cancelled Eos # (Auto) Cancelled Baso # (Auto) Cancelled Abs Immat Gran (auto) Cancelled Absolute Neuts (auto) Cancelled Absolute Nucleated RBC 0.000 (0.0-0.012) X10*3/uL Nucleated RBC % (auto) 0.0 (0.0-0.2) /100WBC Neutrophils % (Manual) 51 (45-73) % Band Neutrophils % 1 L (3-5) % Lymphocytes % (Manual) 45 H (20-40) % Monocytes % (Manual) 2 (2-11) % Basophils % (Manual) 1 (0-2) % Abs Neuts (Manual) 3.5 (2.0-8.3) X10*3/uL Lymphocytes # (Manual) 3.0 (1.2-4.9) X10*3/uL Monocytes # (Manual) 0.1 (0.1-1.2) X10*3/uL Basophils # (Manual) 0.1 (0.0-0.2) X10*3/uL Platelet Estimate NORMAL (NORMAL) Large Platelets PRESENT Plt Morphology Comment NOTED RBC Morphology NOTED Acanthocytes (Spur) 1+ (0-2) /OIF Sodium 141 (135-145) mmol/L Potassium 4.0 (3.3-5.1) mmol/L Chloride 107 (96-108) mmol/L Carbon Dioxide 26 (22-29) mmol/L Anion Gap 12 (12-20) BUN 11 (9-16) mg/dL Creatinine 0.74 (0.5-1.4) mg/dL Estim Creat Clear Calc 118.8 Estimated GFR > 60 Random Glucose 148 H (60-115) mg/dL Calcium 9.0 D (8.4-10.2) mg/dL Total Bilirubin 0.5 (0.0-1.0) mg/dL AST 25 (5-37) U/L ALT 49 H (0-40) U/L Alkaline Phosphatase 84 (39-117) U/L Troponin I High Sens < 2.7 (<3.5-35.0) ng/L Total Protein 7.0 (6.5-8.0) g/dL Albumin 4.2 (3.5-5.0) g/dL Independent Interpretation I performed an independent interpretation of an: CT Scan Interpretation: No ICH or mass effect. Radiology Impression Discussion of test interpretation with radiology: I have reviewed the radiologist's reading. Radiologist Impression: CT: No ICH or mass effect. MRI IMPRESSION: No acute stroke/nonhemorrhagic ischemia. Small vessel occlusive disease. 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 External Record Review External record reviewed: Inpatient record Tests considered The following testing was considered but not selected: CTA head and neck: NIH scale is 0, deferred. Prescription Management I considered prescription management with: Other (antihistamine) Chronic Conditions Patient?s care impacted by: Other (Hyperlipidemia, CVA in past) Social Determinants Patient?s care significantly limited by Social Determinants of Health including: Other Social Determinant of Health Critical Care Time Critical Care Time Critical Care Time: Yes Total Critical Care Time: 30 Attestation: This patient required critical care. Due to the fact that the patient required a significant amount of one on one physician ? patient contact time, ordering and review of studies, arranging urgent treatment with development of a management plan, evaluation of patient?s response to treatment with frequent reassessments, and discussions with other providers this patient required critical care time in excess of 30 minutes. Critical care time was indicated due to the inherent instability and/or potential for instability in this patient. The critical care time that is allocated to this patient is above and beyond any time spent on any other billable procedures performed on this patient. Discharge Plan Discharge Clinical Impression: Dizziness, Chronic serous otitis media, right ear Chronic sinusitis Qualifiers: Sinusitis location: unspecified location Qualified Code(s): J32.9 - Chronic sinusitis, unspecified Patient Disposition: Home, Self-Care Instructions: Fluid In The Ear (Serous Otitis Media) (ED) Additional Instructions: You were seen in the emergency department due to dizziness. As you had a prior CVA in the past and did obtain imaging of your head and brain which shows no acute stroke or bleed. You do have a chronic appearing fusion in your right ear which is likely causing your acute symptoms. You have already seen [facility] for dizziness they have given you meclizine. I do recommend following up with them again however please follow the pain and below to help with your symptoms. Serous Otitis Media is NOT an ear infection, instead, it is a build up of fluid behind your ear drum that causes sensation of pressure/blockage and at times can cause dizziness, crackling/popping sounds, and discomfort.? Fluid behind ear drums is a common condition associated with Allergies, Viral upper respiratory infections, sinus inflammation, and many other upper respiratory conditions.? You already have meclizine at home to use if needed for the dizziness. This condition will typically resolve on its own within several days but may take up to 4-6 weeks. Infections may occur during this time as the fluid may develop bacterial growth. It is NOT appropriate to treat fluid behind ear drums with antibiotics without clear signs of infection.? There is no specific treatment for the fluid itself that is stuck behind ear drums and no bacterial infection.? Common things to try to relieve fluid from middle ear are: Decongestant medications, Antihistamines with decongestants (Zyrtec-D twice daily for 5 days), sour hard candies(war heads/lemon drops), Flonase, pinching nose and gently trying to blow out your nose.? Be sure to drink plenty of fluids and electrolytes, especially if taking over the counter meds. Significant sedation and impairment of performance (eg, fine motor skills, driving skills, and reaction times) occur in more than 20 percent of patients. Anticholinergic side effects include dry mouth, diplopia, blurred vision, urinary retention, or vaginal dryness. This is most prominent in Benadryl. Benadryl (Diphenhydramine): Adults and Children 12 years and older: 25 to 50 mg every 4 to 6 hours as needed. Cetirizine (Zyrtec): Adults and Children 12 years and older: 10 to 20 mg twice daily as needed Claritin (loratidine) Adults and children 6 years and older: 10 -20 mg once daily as needed ( twice daily in adults if needed) Kassi (fexofedadine) Adults and Children ages 12 and older: 180 mg daily as needed (adults may be twice a day) Prescriptions: New cetirizine 10 mg tablet 10 mg PO DAILY Qty: 90 0RF fluticasone propionate 50 mcg/actuation spray,suspension 1 spray intranasal DAILY Qty: 16 2RF Rx Instructions: administer into each nostril No Action meclizine 25 mg tablet 25 mg PO DAILY PRN (Reason: dizziness) Qty: 20 0RF atorvastatin 40 mg Tablet 40 mg PO BEDTIME Qty: 0 0RF aspirin 81 mg Tablet,Delayed Release (Dr/Ec) 81 mg PO DAILY Qty: 0 0RF atorvastatin 40 mg tablet 40 mg PO BEDTIME Qty: 90 0RF Referrals: Victorina Wilkins PA-C [Nurse Practitioner, Ear, Nose, Throat] Referral Note: right ear effusion Interventions: ED Discharge Assessment Last Done: 06/21/25 15:36 Discharge Date/Time: 06/21/25 15:38 Print Language: [place]
[2025-06-21 11:09] LABS: Basophils Abs Manual 0.1 X10*3/uL (0.0-0.2); Lymphocytes Absolute Manual 3.0 X10*3/uL (1.2-4.9); Monocytes Absolute Manual 0.1 X10*3/uL (0.1-1.2); Neutrophils Absolute Manual 3.5 X10*3/uL (2.0-8.3); White Blood Count 6.7 X10*3/uL (4.8-10.8)
[2025-06-21 11:59] VITALS: BP 115/82; PULSE 71; RESP 18; TEMP 36.7; O2SAT 94
--- NOTE | 2025-06-21 13:35 | PC.NURSE ---
Addendum entered by Carmen Hill RN 06/21/25 13:36: Pt taken to MRI via wheelchair. Original Note: Pt taken to MRI via stretcher.
[2025-06-21 14:33] VITALS: BP 112/72; PULSE 66; RESP 18; O2SAT 95
[2025-06-21 15:36] VITALS: BP 116/77; PULSE 67; RESP 18; TEMP 36.4; O2SAT 96
== END 2025-06-21 15:38 | disposition home or self-care (01) ==
PROVIDERS: Emergency Provider Emergency Medicine; PCP Internal Medicine
DX: R42 Dizziness and giddiness (principal); R53.1 Weakness; H66.91 Otitis media, unspecified, right ear; R94.31 Abnormal electrocardiogram [ECG] [EKG]; I67.2 Cerebral atherosclerosis; J01.91 Acute recurrent sinusitis, unspecified
CPT/HCPCS: 36415; 70450; 70551; 80053; 84484; 85007; 85027; 93005; 99285

== ENCOUNTER → 2025-06-21 10:02 | Outpatient (BNV) | payer OTHER, SELFPAY | PROVIDERS: Emergency Provider Emergency Medicine; PCP Internal Medicine; Visit Provider Internal Medicine Cardiovascular Disease | DX: R94.31 Abnormal electrocardiogram [ECG] [EKG] (principal); R53.1 Weakness | CPT/HCPCS: 93010 ==

== ENCOUNTER → 2025-06-21 11:24 | Outpatient (BNV) | payer OTHER, SELFPAY | PROVIDERS: Emergency Provider Emergency Medicine; PCP Internal Medicine; Visit Provider Radiology Diagnostic Radiology | DX: I67.82 Cerebral ischemia (principal); I67.2 Cerebral atherosclerosis | CPT/HCPCS: 70450; 70551 ==

== ENCOUNTER 2025-08-11 08:52 | Emergency (ER) | payer OTHER, SELFPAY ==
--- NOTE | ~2025-08-11 | XR_ITS ---
CLINICAL HISTORY: LBP 3 views lumbar spine Comparison: None provided Findings: There is straightening of the normal lumbar lordosis. There is disc space narrowing at L5-S1. There is facet hypertrophy within the lower lumbar spine. No acute fracture or malalignment. Fecal retention throughout the colon. Impression: Degenerative changes most pronounced at L5-S1. No acute process. This document has been electronically signed by: Bert De Leon MD on 08/11/2025 09:45:03
[2025-08-11 09:04] VITALS: BP 136/69; PULSE 71; RESP 18; TEMP 36.3; O2SAT 92; BMI 32.6
--- NOTE | 2025-08-11 09:21 | ED.GENADULT ---
HPI - General Adult General Chief complaint: Extremity Injury, Lower Stated complaint: l leg numb and painfull Time Seen by Provider: 08/11/25 09:08 Source: patient Mode of arrival: ambulatory Limitations: no limitations History of Present Illness ED Provider: [facility] narrative: 60-year-old male presenting with left buttock and SI pain for the past 3 days, pain is shooting down to the back of his knee, worse with ambulation no abdominal pain no fevers or chills no numbness in the leg no numbness in the groin no nausea or vomiting. Related Data Previous Rx's ?Medication ?Instructions ?Recorded meclizine 25 mg tablet 25 mg PO DAILY PRN dizziness #20 05/28/24 tabs aspirin 81 mg tablet,delayed 81 mg PO DAILY #0 tabs 06/04/24 release atorvastatin 40 mg tablet 40 mg PO BEDTIME #0 tabs 06/04/24 atorvastatin 40 mg tablet 40 mg PO BEDTIME #90 tabs 08/24/24 cetirizine 10 mg tablet 10 mg PO DAILY #90 tabs 06/21/25 fluticasone propionate 50 1 spray intranasal DAILY #16 grams 06/21/25 mcg/actuation nasal spray,suspension methylprednisolone 4 mg tablets in 4 mg PO DAILY #21 ea 08/11/25 a dose pack (Medrol (Thony)) oxycodone 5 mg tablet 5 mg PO Q6H PRN pain #10 tabs 08/11/25 Allergies Allergy/AdvReac Type Severity Reaction Status Date / Time No Known Allergies Allergy Verified 08/11/25 09:06 Review of Systems Constitutional: Constitutional: Reports as per [facility] Past Medical History Medical History (Updated 08/11/25 @ 10:43 by Luis Reed DO) Migraine without aura Tinnitus Acute CVA (cerebrovascular accident) Social History Social History Household Members: Spouse Housing: House Do you presently have visiting nurse or other home services: No Alcohol intake: former Comment: at bedside Patient Tobacco Use Status: Never used Tobacco Advance Directives: Yes Advance Directives on File: Yes Advance Directives Date on File: 06/05/24 Do you have a plan to hurt others: No Plan service: No Physical Exam ED Exam Exam: General: ?Appears of stated age ? Abd: ?Bowel sounds are present, no tenderness no rebound no rigidity ? ?MSK: FROM, strength 5/5 all extremities, no lower extremity edema, tenderness along his left SI and left buttock, no rashes in the area, no edema, no midline spinal tenderness ? Skin: Warm, dry, intact, ? ?Neuro: ?Alert and oriented x3, moving upper and lower extremities symmetrically, no obvious facial asymmetry noted, cranial nerves 2-12 intact Vital Signs: Vital Signs - 24 hr 08/11/25 09:04 08/11/25 10:26 Temperature 97.4 F 98.1 F Pulse Rate 71 71 Respiratory Rate 18 14 Blood Pressure 136/69 103/77 Pulse Oximetry 92 94 Oxygen Delivery Method Room Air Room Air BMI result Body Mass Index 32.6 Medications Administered Discontinued Medications Generic Name Dose Route Start Last Admin Trade Name Freq PRN Reason Stop Dose Admin Dexamethasone 6 mg 08/11/25 09:21 08/11/25 10:33 Dexamethasone 6 Mg Tablet PO 08/11/25 09:22 6 mg ONCE ONE Administration Ketorolac Tromethamine 15 mg 08/11/25 09:21 08/11/25 10:33 Ketorolac Tromethamine 15 Mg/Ml Vial IM 08/11/25 09:22 15 mg ONCE ONE Administration Oxycodone HCl 10 mg 08/11/25 09:21 08/11/25 10:33 Oxycodone Hcl Immed Release 5 Mg Tablet PO 08/11/25 09:22 10 mg ONCE ONE Administration Medical Decision Making Medical Decision Making [facility] Narrative: 9:37 AM 08/11/2025 (Dr. Luis Reed): Physical examination reassuring with no neurologic deficits, isolated tenderness along his buttock and likely over SI joint, without any evidence for rash, he has no neurologic deficits abdominal exam is benign, there was no evidence for DVT, we will obtain imaging, we will initiate treatment for pain Differential Diagnosis Differential Diagnoses: The differential diagnosis associated with the presentation includes (Piriformis syndrome, sacroiliitis, sciatica, diskitis osteomyelitis, cauda equina,) Lab Data [facility] Lab Attestation statement: I reviewed the patient's lab results. 08/11/25 09:48 08/11/25 09:26 Labs: Lab Results 08/11/25 08/11/25 Range/Units 09:26 09:48 WBC 8.6 (4.8-10.8) X10*3/uL RBC 5.47 (4.60-5.80) X10*6/uL Hgb 15.4 (14.0-18.0) g/dl Hct 47.2 (42.0-52.0) % MCV 86.3 (80.0-98.0) fL MCH 28.2 (27.0-33.0) pg MCHC 32.6 (31.0-36.0) g/dl RDW 12.9 (11.0-16.0) % Plt Count 238 (160-400) X10*3/uL MPV 11.0 (9.4-12.4) fL Immature Gran % (Auto) 0.2 (0.0-0.4) % Neut % (Auto) 50.5 (45-73) % Lymph % (Auto) 44.2 H (20-40) % Jerauld % (Auto) 4.0 (2-11) % Eos % (Auto) 0.6 (0-4) % Baso % (Auto) 0.5 (0-2) % Lymph # (Auto) 3.8 (1.2-4.9) X10*3/uL J[place]uld # (Auto) 0.3 (0.1-1.2) X10*3/uL Eos # (Auto) 0.1 (0.0-0.4) X10*3/uL Baso # (Auto) 0.0 (0.0-0.2) X10*3/uL Abs Immat Gran (auto) 0.02 (0.00-0.03) X10*3/uL Absolute Neuts (auto) 4.3 (2.0-8.3) x10*3/uL Absolute Nucleated RBC 0.000 (0.0-0.012) X10*3/uL Nucleated RBC % (auto) 0.0 (0.0-0.2) /100WBC PT 11.8 (10.9-12.4) SEC INR 1.0 (0.9-1.1) Sodium 138 (135-145) mmol/L Potassium 4.3 (3.3-5.1) mmol/L Chloride 103 (96-108) mmol/L Carbon Dioxide 26 (22-29) mmol/L Anion Gap 13 (12-20) BUN 11 (9-16) mg/dL Creatinine 0.80 (0.5-1.4) mg/dL Estim Creat Clear Calc 111.1 Estimated GFR > 60 Random Glucose 118 H (60-115) mg/dL Calcium 8.9 (8.4-10.2) mg/dL Total Bilirubin 0.6 (0.0-1.0) mg/dL AST 31 (5-37) U/L ALT 54 H (0-40) U/L Alkaline Phosphatase 80 (39-117) U/L Total Protein 7.3 (6.5-8.0) g/dL Albumin 4.3 (3.5-5.0) g/dL Independent Interpretation I performed an independent interpretation of an: Plain X-Ray (Arthritic changes in the L5-S1 as well as loss of lordosis consistent with spasm) Radiology Impression Discussion of test interpretation with radiology: I have reviewed the radiologist's reading. ( Impression: Degenerative changes most pronounced at L5-S1. No acute process.) Discharge Plan Discharge Clinical Impression: Inflammation of left sacroiliac joint, Low back pain Patient Disposition: Home, Self-Care Additional Instructions: Your workup has been reassuring, blood work unremarkable, physical examination and x-rays consistent with lumbosacral issues, most pronounced his that you have some spasm of the lower back and some arthritic changes in the lower spine, continue steroids starting tomorrow You can apply heat packs to the area of the buttock and lower back Oxycodone only if Tylenol 975 mg every 6 hours as not working Re-evaluation and additional pain control she had happened by your PCP on outpatient basis Worsening issues or concerns come back to the ED Prescriptions: New methylprednisolone [Medrol (Thony)] 4 mg tablets,dose pack 4 mg PO DAILY Qty: 21 0RF Rx Instructions: Day 1: 24 mg on day 1 administered as 8 mg before breakfast, 4 mg after lunch, 4 mg after supper, and 8 mg at bedtime or 24 mg as a single dose or divided into 2 or 3 doses upon initiation. Day 2: 20 mg on day 2 administered as 4 mg before breakfast, 4 mg after lunch, 4 mg after supper, and 8 mg at bedtime. Day 3: 16 mg on day 3 administered as 4 mg before breakfast, 4 mg after lunch, 4 mg after supper, and 4 mg at bedtime. Day 4: 12 mg on day 4 administered as 4 mg before breakfast, 4 mg after lunch, and 4 mg at bedtime. Day 5: 8 mg on day 5 administered as 4 mg before breakfast and 4 mg at bedtime. Day 6: 4 mg on day 6 administered as 4 mg before breakfast. oxycodone 5 mg tablet 5 mg PO Q6H PRN (Reason: pain) Qty: 10 0RF Rx Instructions: Partial Fill upon patient request. No Action meclizine 25 mg tablet 25 mg PO DAILY PRN (Reason: dizziness) Qty: 20 0RF atorvastatin 40 mg Tablet 40 mg PO BEDTIME Qty: 0 0RF aspirin 81 mg Tablet,Delayed Release (Dr/Ec) 81 mg PO DAILY Qty: 0 0RF atorvastatin 40 mg tablet 40 mg PO BEDTIME Qty: 90 0RF cetirizine 10 mg tablet 10 mg PO DAILY Qty: 90 0RF fluticasone propionate 50 mcg/actuation spray,suspension 1 spray intranasal DAILY Qty: 16 2RF Rx Instructions: administer into each nostril Referrals: Mahnaz Campbell MD [Primary Care Provider, Internal Medicine] - 10 days Clinical Impression: Low back pain; Inflammation of left sacroiliac joint Print Language: Ukrainian
--- OUTSIDE RECORDS SUMMARY | 2025-08-11 09:38 | XMS_ITS | Clinical Summary ---
Author Organization [facility] [address] [place] [address] [address] [place], [place] Phone Care Team Providers Care Paleobotanist Name Role Phone Mahnaz Campbell MD Primary Care Provider Allergies No known active allergies Medications aspirin 81 mg EC tablet Take 1 tablet (81 mg total) by mouth 1 (one) time each day. 90 tablet 1 5 Active atorvastatin (LIPITOR) 80 mg tablet TAKE 1 TABLET BY MOUTH 1 TIME EACH DAY. 90 tablet 1 5 Active meclizine (ANTIVERT) 12.5 mg tablet TAKE 1 TABLET BY MOUTH 1 TIME EACH DAY IF NEEDED FOR DIZZINESS. 30 tablet 2 5 Active meclizine (ANTIVERT) 12.5 mg tablet TAKE 1 TABLET BY MOUTH 1 TIME EACH DAY IF NEEDED FOR DIZZINESS. 30 tablet 2 5 07/23/20 25 Discontinued Active Problems Problem Noted Date Diagnosed Date Elevated blood pressure reading 08/01/2025 Unsteadiness 01/16/2025 Memory loss 01/16/2025 Tinnitus of right ear 01/16/2025 History of dizziness 10/16/2024 History of CVA (cerebrovascular accident) 2023 Nonintractable episodic headache 10/16/2024 Hypercholesterolemia 10/16/2024 Blurred vision, bilateral 06/22/2024 Cerebrovascular accident (CVA) (CMS/HCC V24, CMS /HCC V28) 06/22/2024 Decreased left patellar reflex 06/22/2024 Hearing loss of right ear 06/22/2024 Mixed hyperlipidemia 06/22/2024 Obesity (BMI 30-39.9) 06/22/2024 Encounters Date Type Department Care Team Description 08/01/2025 11:00 AM EDT Office Visit Adult [address] [phone] Mahnaz Campbell MD Mixed hyperlipidemia (Primary Dx); Elevated blood pressure reading; Obesity (BMI 30-39.9); History of CVA (cerebrovascular accident); Tinnitus of right ear; Imbalance from Last 3 Months Social History Tobacco Use Types Packs/Day Years Used Date Smoking Tobacco: Never Assessed Sex and Gender Information Value Date Recorded Sex Assigned at Not on file Legal Sex Male 11:03 AM EDT Gender Identity Not on file Sexual Orientation Not on file Last Filed Vital Signs Vital Sign Reading Time Taken Comments Blood Pressure 141/81 08/01/2025 10:38 AM EDT Pulse 79 08/01/2025 10:16 AM EDT Temperature 36.3 C (97.3 F) 08/01/2025 10:16 AM EDT Respiratory Rate 12 08/01/2025 10:16 AM EDT Oxygen Saturation - - Inhaled Oxygen Concentration - - Weight 98.4 kg (217 lb) 08/01/2025 10:16 AM EDT Height 172.7 cm (5' 8 ) 08/01/2025 10:16 AM EDT Body Mass Index 32.99 08/01/2025 10:16 AM EDT Plan of Treatment Upcoming Encounters Date Type Department Care Team (Late st Contact Info) Description 08/28/2025 8:30 AM EDT Office Visit [address] [phone] Mahnaz Campbell MD [address] [place] [id number] Health Maintenance Due Date Last Done Comments Colorectal Cancer Screening: Colonoscopy 1965 DTaP,Tdap,and Td Vaccines (1 - Tdap) 1984 Pneumococcal Vaccine: 50+ Years (1 of 1 - PCV) 2015 Zoster Vaccines (1 of 2) 2015 HIV Screening 06/01/2024 Hepatitis C Screening 06/01/2024 Social Influencers of Health Screening 06/01/2024 Depression Screening 10/31/2024 COVID-19 Vaccine (1 - 2023-2 5 season) 2025 Influenza Vaccine (#1) 2025 Cholesterol Screening (Lipid [...] LAB CHEMISTRY METHOD 10/19/2024 10:18 AM EST [facility] Triglycerides 120 0 - 150 mg/dL LAB CHEMISTRY METHOD 10/19/2024 10:18 AM EST [facility] HDL 46 >=40 mg/dL LAB CHEMISTRY METHOD 10/19/2024 10:18 AM EST [facility] LDL Calculated 82 0 - 100 mg/dL LAB CHEMISTRY METHOD 10/19/2024 10:18 AM EST [facility] VLDL Cholesterol Jason 24 mg/dL LAB CHEMISTRY METHOD 10/19/2024 10:18 AM EST [facility] Non HDL Chol. (LDL+VLDL) 106 <145 mg/dL LAB CHEMISTRY METHOD 10/19/2024 10:18 AM EST [facility] Chol/HDL Ratio 3.3 0.0 - 4.4 LAB CHEMISTRY METHOD 10/19/2024 10:18 AM [facility] Blood Venous blood specimen / Unknown Venipuncture / Unknown 10/19/2024 8:28 AM EST 10/19/2024 8:28 AM EST us Mahnaz Campbell MD LAB BLOOD ORDERABLES Final Result [facility] [address] [place] [address], from Last 3 Months or Most Recently Relevant to Health Maintenance Insurance [employer] Advance Directives Documents on File Type Date Recorded 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
--- OUTSIDE RECORDS SUMMARY | 2025-08-11 09:39 | XMS_ITS | Patient Health Record ---
Author Organization Brad Stein MD [facility] Address [address] [phone] Support Name Relationship Address Phone Brant Poole Guarantor Unknown [phone] Reason For Referral No Information Plan Of Treatment No Information Insurance Providers Payer Name Payer Address Payer Phone Subscriber Number Group Number Insured Name Patient Relationship to Insured Coverage Start Date Coverage End Date [id number] [address] [place] [address] [phone] [id number] Brant Poole Self - patient is the insured
[2025-08-11 09:45] LABS: INTERNATIONAL NORM RATIO 1.0 (0.9-1.1); Prothrombin Time 11.8 SEC (10.9-12.4)
[2025-08-11 09:47] LABS: Alanine Aminotransferase 54 U/L (0-40); Albumin Level 4.3 g/dL (3.5-5.0); Alkaline Phosphatase 80 U/L (39-117); Anion Gap 13 (12-20); Aspartate Amino Transferase 31 U/L (5-37); Blood Urea Nitrogen 11 mg/dL (9-16); Calcium 8.9 mg/dL (8.4-10.2); Carbon Dioxide 26 mmol/L (22-29); Chloride 103 mmol/L (96-108); Creatinine Clr Calc Pharmacy 111.1; Estimated Glomerular Filt Rate > 60; Potassium 4.3 mmol/L (3.3-5.1); Sodium 138 mmol/L (135-145); Total Protein 7.3 g/dL (6.5-8.0)
[2025-08-11 09:59] LABS: Hematocrit 47.2 % (42.0-52.0); Hemoglobin 15.4 g/dl (14.0-18.0); Imm Gran Abs Auto 0.02 X10*3/uL (0.00-0.03); Imm Gran Pct Auto 0.2 % (0.0-0.4); Lymphocytes Absolute Auto 3.8 X10*3/uL (1.2-4.9); Mean Corpuscular HGB Conc 32.6 g/dl (31.0-36.0); Mean Corpuscular Hemoglobin 28.2 pg (27.0-33.0); Mean Corpuscular Volume 86.3 fL (80.0-98.0); NRBC Abs Auto 0.000 X10*3/uL (0.0-0.012); NRBC Pct Auto 0.0 /100WBC (0.0-0.2); Platelet Count 238 X10*3/uL (160-400); Red Blood Count 5.47 X10*6/uL (4.60-5.80); White Blood Count 8.6 X10*3/uL (4.8-10.8)
[2025-08-11 10:26] VITALS: BP 103/77; PULSE 71; RESP 14; TEMP 36.7; O2SAT 94
[2025-08-11] MEDS: oxyCODONE HCl Immed Release 5 MG TABLET 10 MG PO (10:33)
[2025-08-11 10:50] LABS: MANUAL DIFF FLAG NO
[2025-08-11 11:05] VITALS: BP 114/68; PULSE 76; RESP 18; TEMP 36.6; O2SAT 98
== END 2025-08-11 11:07 | disposition home or self-care (01) ==
PROVIDERS: Emergency Provider Emergency Medicine; PCP Internal Medicine
DX: M46.1 Sacroiliitis, not elsewhere classified (principal); M54.50 Low back pain, unspecified
CPT/HCPCS: 36415; 72100; 80053; 85025; 85610; 96372; 99283; 99284; J1885; J8540

== ENCOUNTER → 2025-08-11 09:21 | Outpatient (BNV) | payer OTHER, SELFPAY | PROVIDERS: Emergency Provider Emergency Medicine; PCP Internal Medicine; Visit Provider Radiology Vascular & Interventional Radiology | DX: M51.370 Other intervertebral disc degeneration, lumbosacral region with discogenic back pain only (principal) | CPT/HCPCS: 72100 ==